=== PATIENT | male | born 1940 | race African-American/Black ===

== ENCOUNTER 2021-07-24 15:03 | Outpatient (CLI) | payer OTHER | END 2021-07-24 15:04 | disposition home or self-care (01) | LOC: BICULT 15:03 | PROVIDERS: ATTEND Family Medicine | DX: I65.23 Occlusion and stenosis of bilateral carotid arteries (principal) | CPT/HCPCS: 93880 ==

== ENCOUNTER 2023-02-17 22:57 | Emergency (ER) | payer OTHER ==
[2023-02-17 23:54] LABS: #Eosinphils 0.1 thou/uL (0.0-0.7); #Monocytes 0.9 thou/uL (0.11-0.59); #Neutrophils 4.6 thou/uL (1.40-6.50); %Basophils 0.6 % (0.0-1.0); %Eosinophils 1.9 % (0.0-10.0); %Lymphocytes 21.3 % (21.0-51.0); %Neutrophils 63.9 % (42.0-75.0); Hematocrit 35.9 % (42.0-52.0); Hemoglobin 11.7 g/dL (14.0-18.0); Mean Corpuscular HGB CONC 32.6 g/dL (32.0-36.0); Mean Corpuscular Hemoglobin 28.5 pg (27.0-31.0); Mean Corpuscular Volume 87.6 fl (78.0-98.0); Platelet Count 180 10x3/uL (130-400); RBC Distribution Width 16.6 % (11.5-14.5); White Blood Cell (WBC) Count 7.2 10x3/uL (4.8-10.8)
[2023-02-18 00:18] LABS: ALT (SGPT) 11 U/L (8-55); AST (SGOT) 21 U/L (5-34); Albumin 3.5 g/dL (3.4-4.8); Alkaline Phosphatase 59 U/L (40-110); Anion Gap 15 mmol/L (10-20); BUN (Urea Nitrogen) 14 mg/dL (8.4-25.7); Bilirubin, Total 0.4 mg/dL (0.2-1.2); Calc. Creatinine Clearance 0 mL/min (70-130); Calcium 8.6 mg/dL (7.8-10.44); Carbon Dioxide 23 mmol/L (23-31); Chloride 110 mmol/L (98-107); Estimated GFR 70; Globulin 2.9 g/dL (2.4-3.5); Glucose 141 mg/dL (83-110); Potassium 3.8 mmol/L (3.5-5.1); Protein, Total 6.4 g/dL (5.8-8.1); Sodium 144 mmol/L (136-145)
[2023-02-18 00:21] LABS: Troponin I Less than 0.010 ng/mL (< 0.028)
[2023-02-18 00:39] LABS: PTT 33.9 sec (22.9-36.1); Prothrombin Time 13.5 sec (12.0-14.7)
[2023-02-18] MEDS ORDERED: Ibuprofen 200 MG TAB ONE (00:51)
== END 2023-02-18 01:11 | disposition home or self-care (01) ==
LOC: ERS 22:57
DX: S00.83XA Contusion of other part of head, initial encounter (principal); F03.90 Unspecified dementia, unspecified severity, without behavioral disturbance, psychotic disturbance, mood disturbance, and anxiety; I10 Essential (primary) hypertension; W01.0XXA Fall on same level from slipping, tripping and stumbling without subsequent striking against object, initial encounter; Y92.009 Unspecified place in unspecified non-institutional (private) residence as the place of occurrence of the external cause; Z79.82 Long term (current) use of aspirin; Z79.899 Other long term (current) drug therapy; Z86.73 Personal history of transient ischemic attack (TIA), and cerebral infarction without residual deficits
CPT/HCPCS: 36415; 70450; 72125; 80053; 84484; 85025; 85610; 85730; 93005

== ENCOUNTER 2023-02-20 22:36 | Inpatient (IN) | payer OTHER ==
[2023-02-20 23:18] LABS: #Eosinphils 0.1 thou/uL (0.0-0.7); #Monocytes 0.9 thou/uL (0.11-0.59); #Neutrophils 4.6 thou/uL (1.40-6.50); %Basophils 0.6 % (0.0-1.0); %Eosinophils 1.3 % (0.0-10.0); %Lymphocytes 19.1 % (21.0-51.0); %Monocytes 12.5 % (0.0-10.0); %Neutrophils 66.2 % (42.0-75.0); Hematocrit 38.1 % (42.0-52.0); Hemoglobin 12.3 g/dL (14.0-18.0); Mean Corpuscular HGB CONC 32.3 g/dL (32.0-36.0); Mean Corpuscular Hemoglobin 28.9 pg (27.0-31.0); Mean Corpuscular Volume 89.4 fl (78.0-98.0); Mean Platelet Volume 12.1 fL (7.4-10.4); Platelet Count 195 10x3/uL (130-400); RBC Distribution Width 16.6 % (11.5-14.5); Red Blood Cell (RBC) Count 4.26 mill/uL (4.70-6.10)
[2023-02-20 23:43] LABS: Bacteria/HPF None Seen HPF (None Seen); Bilirubin Negative (Negative); Blood, Urine Negative (Negative); CAUTI Indications for Culture Alt mental st,lethar; Clarity Clear (Clear); Glucose, Urine (Dipstick) Normal (Negative); Ketone, Urine Negative (Negative); Leukocyte Negative Leu/uL (Negative); Nitrite Negative (Negative); Protein, Urine (Dipstick) 20 mg/dL (Neg-Trace); RBC/HPF 0-3 HPF (0-3); Specific Gravity, Urine 1.023 (1.002-1.036); Squamous Epithelial None Seen HPF (0-3); Urobilinogen 3 mg/dL (Less than 2); WBC/HPF 0-3 HPF (0-3); pH, Urine 6.5 (5.0-9.0)
[2023-02-20 23:44] LABS: ALT (SGPT) 14 U/L (8-55); AST (SGOT) 27 U/L (5-34); Albumin 3.7 g/dL (3.4-4.8); Alkaline Phosphatase 68 U/L (40-110); Anion Gap 16 mmol/L (10-20); BUN (Urea Nitrogen) 12 mg/dL (8.4-25.7); Bilirubin, Total 0.4 mg/dL (0.2-1.2); Calc. Creatinine Clearance 0 mL/min (70-130); Calcium 9.1 mg/dL (7.8-10.44); Carbon Dioxide 22 mmol/L (23-31); Chloride 107 mmol/L (98-107); Estimated GFR 68; Globulin 3.4 g/dL (2.4-3.5); Glucose 106 mg/dL (83-110); Potassium 3.9 mmol/L (3.5-5.1); Protein, Total 7.1 g/dL (5.8-8.1); Sodium 141 mmol/L (136-145)
[2023-02-20 23:45] LABS: Urine Culture Reflex No No
[2023-02-21] MEDS ORDERED: risperiDONE 1 MG TAB ONE (03:54)
[2023-02-21] MEDS ORDERED: Haloperidol Lactate 5 MG/ML VIAL ONE (04:20)
[2023-02-21] MEDS ORDERED: Ondansetron PF 4 MG/2 ML Vial IVP PRN (05:30)
[2023-02-21] MEDS ORDERED: Ondansetron ODT 4 MG TAB SL PRN (05:30)
[2023-02-21] MEDS ORDERED: Acetaminophen 325 MG TAB PO PRN (05:30)
[2023-02-21] MEDS: Nicotine 14 MG PATCH TD SCH (11:33)
[2023-02-21] MEDS ORDERED: FLU VACC QS2023(65UP)/MF59C/PF 60 MCG/0.5 ML SYRINGE IM ONE (14:00)
[2023-02-21] MEDS: Atorvastatin Calcium 40 MG TAB PO SCH (21:09)
[2023-02-21] MEDS: QUEtiapine 25 MG TAB PO SCH (21:09)
[2023-02-21] MEDS: traZODone HCl 50 MG TAB PO SCH (21:09)
[2023-02-21] MEDS: Losartan 25 MG TAB PO SCH (21:09)
[2023-02-22] MEDS ORDERED: Labetalol HCl 100 MG/20 ML VIAL SLOW IVP SCH (03:45)
[2023-02-22 07:10] LABS: #Monocytes 1.2 thou/uL (0.11-0.59); #Neutrophils 4.9 thou/uL (1.40-6.50); %Basophils 0.5 % (0.0-1.0); %Eosinophils 0.6 % (0.0-10.0); %Neutrophils 74.6 % (42.0-75.0); Hematocrit 39.6 % (42.0-52.0); Hemoglobin 13.1 g/dL (14.0-18.0); Mean Corpuscular HGB CONC 33.1 g/dL (32.0-36.0); Mean Corpuscular Hemoglobin 28.6 pg (27.0-31.0); Mean Corpuscular Volume 86.5 fl (78.0-98.0); Mean Platelet Volume 12.5 fL (7.4-10.4); Platelet Count 203 10x3/uL (130-400); RBC Distribution Width 16.3 % (11.5-14.5); Red Blood Cell (RBC) Count 4.58 mill/uL (4.70-6.10); White Blood Cell (WBC) Count 6.6 10x3/uL (4.8-10.8)
[2023-02-22 07:28] LABS: Anion Gap 14 mmol/L (10-20); BUN (Urea Nitrogen) 9 mg/dL (8.4-25.7); Calc. Creatinine Clearance 0 mL/min (70-130); Calcium 9.3 mg/dL (7.8-10.44); Carbon Dioxide 25 mmol/L (23-31); Chloride 104 mmol/L (98-107); Estimated GFR 80; Glucose 81 mg/dL (83-110); Potassium 3.5 mmol/L (3.5-5.1); Sodium 139 mmol/L (136-145)
[2023-02-22] MEDS: Tamsulosin HCl 0.4 MG CAP PO SCH (10:09)
[2023-02-22] MEDS: Losartan 25 MG TAB PO SCH ×2 (10:10→20:53)
[2023-02-22] MEDS: Aspirin 81 mg Enteric Coated Tablet PO SCH (10:10)
[2023-02-22] MEDS: Amlodipine 5 MG TAB PO SCH (10:10)
[2023-02-22] MEDS: Donepezil HCl 10 MG TAB PO SCH (10:10)
[2023-02-22] MEDS: Sertraline 25 MG TAB PO SCH (10:10)
[2023-02-22] MEDS: Finasteride 5 MG TAB PO SCH (10:10)
[2023-02-22] MEDS: Nicotine 14 MG PATCH TD SCH (10:13)
[2023-02-22] MEDS: traZODone HCl 50 MG TAB PO SCH (20:54)
[2023-02-22] MEDS: QUEtiapine 25 MG TAB PO SCH (20:54)
[2023-02-22] MEDS: Atorvastatin Calcium 40 MG TAB PO SCH (20:54)
[2023-02-23] MEDS: Donepezil HCl 10 MG TAB PO SCH (08:32)
[2023-02-23] MEDS: Losartan 25 MG TAB PO SCH ×2 (08:32→20:13)
[2023-02-23] MEDS: Finasteride 5 MG TAB PO SCH (08:32)
[2023-02-23] MEDS: Sertraline 25 MG TAB PO SCH (08:32)
[2023-02-23] MEDS: Amlodipine 5 MG TAB PO SCH (08:32)
[2023-02-23] MEDS: Aspirin 81 mg Enteric Coated Tablet PO SCH (08:32)
[2023-02-23] MEDS: Tamsulosin HCl 0.4 MG CAP PO SCH (08:32)
[2023-02-23] MEDS: Nicotine 14 MG PATCH TD SCH (10:25)
[2023-02-23] MEDS: Atorvastatin Calcium 40 MG TAB PO SCH (20:13)
[2023-02-23] MEDS: QUEtiapine 25 MG TAB PO SCH (20:13)
[2023-02-23] MEDS: traZODone HCl 50 MG TAB PO SCH (20:13)
[2023-02-24] MEDS: Sertraline 25 MG TAB PO SCH (07:59)
[2023-02-24] MEDS: Tamsulosin HCl 0.4 MG CAP PO SCH (07:59)
[2023-02-24] MEDS: Losartan 25 MG TAB PO SCH ×2 (07:59→21:06)
[2023-02-24] MEDS: Donepezil HCl 10 MG TAB PO SCH (07:59)
[2023-02-24] MEDS: Aspirin 81 mg Enteric Coated Tablet PO SCH (07:59)
[2023-02-24] MEDS: Finasteride 5 MG TAB PO SCH (07:59)
[2023-02-24] MEDS ORDERED: Amlodipine 5 MG TAB PO SCH ×2 (09:00)
[2023-02-24] MEDS: Nicotine 14 MG PATCH TD SCH (11:10)
[2023-02-24] MEDS: Atorvastatin Calcium 40 MG TAB PO SCH (21:06)
[2023-02-24] MEDS: QUEtiapine 25 MG TAB PO SCH (21:06)
[2023-02-24] MEDS: traZODone HCl 50 MG TAB PO SCH (21:07)
[2023-02-25] MEDS: Losartan 25 MG TAB PO SCH ×2 (08:58→22:08)
[2023-02-25] MEDS: Sertraline 25 MG TAB PO SCH (09:00)
[2023-02-25] MEDS: Donepezil HCl 10 MG TAB PO SCH (09:00)
[2023-02-25] MEDS: Amlodipine 5 MG TAB PO SCH (09:00)
[2023-02-25] MEDS: Finasteride 5 MG TAB PO SCH (09:00)
[2023-02-25] MEDS: Aspirin 81 mg Enteric Coated Tablet PO SCH (09:00)
[2023-02-25] MEDS: Tamsulosin HCl 0.4 MG CAP PO SCH (09:00)
[2023-02-25] MEDS: Nicotine 14 MG PATCH TD SCH (10:57)
[2023-02-25] MEDS: Atorvastatin Calcium 40 MG TAB PO SCH (22:08)
[2023-02-25] MEDS: QUEtiapine 25 MG TAB PO SCH (22:08)
[2023-02-25] MEDS: traZODone HCl 50 MG TAB PO SCH (22:09)
[2023-02-26] MEDS: Losartan 25 MG TAB PO SCH ×2 (08:18→20:35)
[2023-02-26] MEDS: Aspirin 81 mg Enteric Coated Tablet PO SCH (08:18)
[2023-02-26] MEDS: Tamsulosin HCl 0.4 MG CAP PO SCH (08:18)
[2023-02-26] MEDS: Finasteride 5 MG TAB PO SCH (08:18)
[2023-02-26] MEDS: Donepezil HCl 10 MG TAB PO SCH (08:18)
[2023-02-26] MEDS: Sertraline 25 MG TAB PO SCH (08:18)
[2023-02-26] MEDS: Amlodipine 5 MG TAB PO SCH (08:18)
[2023-02-26] MEDS: Nicotine 14 MG PATCH TD SCH (10:36)
[2023-02-26] MEDS: QUEtiapine 25 MG TAB PO SCH ×2 (20:30→20:31)
[2023-02-26] MEDS: Atorvastatin Calcium 40 MG TAB PO SCH (20:35)
[2023-02-26] MEDS: traZODone HCl 50 MG TAB PO SCH (20:36)
[2023-02-27 05:57] LABS: Hematocrit 43.4 % (42.0-52.0); Hemoglobin 14.3 g/dL (14.0-18.0); Mean Corpuscular HGB CONC 32.9 g/dL (32.0-36.0); Mean Corpuscular Hemoglobin 28.1 pg (27.0-31.0); Mean Corpuscular Volume 85.3 fl (78.0-98.0); Mean Platelet Volume 12.5 fL (7.4-10.4); Platelet Count 234 10x3/uL (130-400); RBC Distribution Width 15.7 % (11.5-14.5); Red Blood Cell (RBC) Count 5.09 mill/uL (4.70-6.10); White Blood Cell (WBC) Count 9.5 10x3/uL (4.8-10.8)
[2023-02-27 06:20] LABS: Anion Gap 21 mmol/L (10-20); BUN (Urea Nitrogen) 110 mg/dL (8.4-25.7); Calc. Creatinine Clearance 19 mL/min (70-130); Calcium 9.2 mg/dL (7.8-10.44); Carbon Dioxide 20 mmol/L (23-31); Chloride 106 mmol/L (98-107); Estimated GFR 24; Glucose 115 mg/dL (83-110); Potassium 4.1 mmol/L (3.5-5.1); Sodium 143 mmol/L (136-145)
[2023-02-27] MEDS ORDERED: Sodium Chloride 0.9% 1,000 ML IV SCH (07:45)
[2023-02-27] MEDS: Amlodipine 5 MG TAB PO SCH (09:38)
[2023-02-27] MEDS: Tamsulosin HCl 0.4 MG CAP PO SCH ×2 (09:53→09:56)
[2023-02-27] MEDS: Aspirin 81 mg Enteric Coated Tablet PO SCH ×2 (09:53→09:56)
[2023-02-27] MEDS: Finasteride 5 MG TAB PO SCH ×2 (09:53→09:56)
[2023-02-27] MEDS: Donepezil HCl 10 MG TAB PO SCH (09:57)
[2023-02-27] MEDS: Sertraline 25 MG TAB PO SCH (09:57)
[2023-02-27 10:16] LABS: Actual Bicarbonate (HCO3a) 21.1 mEq/L (22-28); Base Excess (BEa) -2.1 mEq/L (-2.0 to +3.0); CO2 Tension 31.9 mmHg (35.0-45.0); Calcium, Ionized (arterial) 1.16 mmol/L (1.12-1.30); Carboxyhemoglobin (COHb) 0.4 gm% (0.0-3.0); Hematocrit-ABG 44 % (42.0-52.0); Hemoglobin (Hb) 14.8 g/dL (14.0-18.0); O2 Tension (PaO2), arterial 47.6 mmHg (> 60.0); Potassium - ABG Lab 3.99 mmol/L (3.70-5.30); Puncture Site RRA; pH, Arterial 7.438 (7.35-7.45)
[2023-02-27] MEDS: Sodium Chloride 0.9% 1,000 ML IV SCH ×2 (10:16→18:14)
[2023-02-27] MEDS: Nicotine 14 MG PATCH TD SCH (10:22)
[2023-02-27] MEDS: Atorvastatin Calcium 40 MG TAB PO SCH (20:30)
[2023-02-28] MEDS: Sodium Chloride 0.9% 1,000 ML IV SCH (04:43)
[2023-02-28 07:11] LABS: Anion Gap 19 mmol/L (10-20); Calc. Creatinine Clearance 13 mL/min (70-130); Calcium 8.7 mg/dL (7.8-10.44); Carbon Dioxide 21 mmol/L (23-31); Chloride 111 mmol/L (98-107); Estimated GFR 15; Glucose 119 mg/dL (83-110); Magnesium 3.1 mg/dL (1.6-2.6); Potassium 3.9 mmol/L (3.5-5.1); Sodium 147 mmol/L (136-145)
[2023-02-28 07:23] LABS: BUN (Urea Nitrogen) 126 mg/dL (8.4-25.7)
[2023-02-28] MEDS ORDERED: Dextrose 5 %-0.45 % NaCl 1,000 ML IV SCH (07:30)
[2023-02-28] MEDS: Albumin 25% 25 GM (100 mL) BOT IVPB SCH ×3 (08:22→20:24)
[2023-02-28] MEDS: Amlodipine 5 MG TAB PO SCH (08:30)
[2023-02-28] MEDS: Finasteride 5 MG TAB PO SCH (08:31)
[2023-02-28] MEDS: Tamsulosin HCl 0.4 MG CAP PO SCH (08:31)
[2023-02-28] MEDS: Aspirin 81 mg Enteric Coated Tablet PO SCH (08:31)
[2023-02-28] MEDS: Nicotine 14 MG PATCH TD SCH (10:26)
[2023-02-28] MEDS: Dextrose 5 %-0.45 % NaCl 1,000 ML IV SCH ×3 (11:56→20:25)
[2023-02-28 15:10] LABS: Bilirubin Negative (Negative); Blood, Urine 3+ (Negative); Clarity Turbid (Clear); Glucose, Urine (Dipstick) Normal (Negative); Ketone, Urine Negative (Negative); Leukocyte Negative Leu/uL (Negative); Nitrite Negative (Negative); Protein, Urine (Dipstick) 50 mg/dL (Neg-Trace); RBC/HPF 0-3 HPF (0-3); Specific Gravity, Urine 1.016 (1.002-1.036); Squamous Epithelial 0-3 HPF (0-3); Urobilinogen Normal mg/dL (Less than 2); WBC/HPF 0-3 HPF (0-3)
[2023-02-28 15:17] LABS: Bacteria/HPF 1+ HPF (None Seen)
[2023-02-28] MEDS: Atorvastatin Calcium 40 MG TAB PO SCH (20:24)
[2023-03-01] MEDS: Albumin 25% 25 GM (100 mL) BOT IVPB SCH ×3 (01:25→17:01)
[2023-03-01] MEDS: Dextrose 5 %-0.45 % NaCl 1,000 ML IV SCH (05:40)
[2023-03-01 07:24] LABS: Hematocrit 37.1 % (42.0-52.0); Hemoglobin 12.2 g/dL (14.0-18.0); Manual Diff?? YES; Mean Corpuscular HGB CONC 32.9 g/dL (32.0-36.0); Mean Corpuscular Hemoglobin 28.2 pg (27.0-31.0); Mean Corpuscular Volume 85.7 fl (78.0-98.0); Mean Platelet Volume 12.4 fL (7.4-10.4); Platelet Count 218 10x3/uL (130-400); RBC Distribution Width 15.8 % (11.5-14.5); Red Blood Cell (RBC) Count 4.33 mill/uL (4.70-6.10); White Blood Cell (WBC) Count 8.8 10x3/uL (4.8-10.8)
[2023-03-01 07:29] LABS: Delete Auto Diff?? YES
[2023-03-01 07:47] LABS: Anion Gap 18 mmol/L (10-20); Calc. Creatinine Clearance 14 mL/min (70-130); Calcium 8.9 mg/dL (7.8-10.44); Carbon Dioxide 19 mmol/L (23-31); Chloride 114 mmol/L (98-107); Estimated GFR 16; Glucose 243 mg/dL (83-110); Potassium 3.4 mmol/L (3.5-5.1); Sodium 148 mmol/L (136-145)
[2023-03-01 07:57] LABS: Anisocytosis SLIGHT = 6-15 cells HPF (0-5); Band 35 % (5-11); Burr Cells SLIGHT = 2-5 cells HPF (0-1); CellaVision Operator ID lab.dlt; Large Platelets 7.6 % (0-5); Lymphocytes 5 % (21-51); Monocytes 19 % (0-10); Neutrophil 42 % (42-75); Ovalocytes MODERATE= 6-15 cells HPF (0-1); Platelet Adequacy Comment Platelets Normal; Poikilocytosis MODERATE=16-30 cells HPF (0-5); Schistocytes SLIGHT = 2-5 cells HPF (0-1); Smudge Cells 7.6 %; Total Cell Count 118
[2023-03-01 07:58] LABS: BUN (Urea Nitrogen) 122 mg/dL (8.4-25.7)
[2023-03-01] MEDS ORDERED: Dextrose 5 %-0.45 % NaCl 1,000 ML IV SCH (08:59)
[2023-03-01] MEDS ORDERED: Potassium Chloride 20 MEQ in Premix 1 BAG IVPB SCH (09:00)
[2023-03-01] MEDS: Aspirin 81 mg Enteric Coated Tablet PO SCH (09:39)
[2023-03-01] MEDS: Amlodipine 5 MG TAB PO SCH (09:39)
[2023-03-01] MEDS: Tamsulosin HCl 0.4 MG CAP PO SCH (09:40)
[2023-03-01] MEDS: Finasteride 5 MG TAB PO SCH (09:40)
[2023-03-01] MEDS ORDERED: Furosemide 40 MG (4 mL) VIAL SLOW IVP SCH (10:30)
[2023-03-01] MEDS ORDERED: Piperacillin/Tazobactam 3.375 GM in Sodium Chloride 0.9% 100 ML IVPB SCH ×2 (10:30→12:00)
[2023-03-01] MEDS ORDERED: Vancomycin Dose by Levels Sliding Scale (Wt <71) FS SCH (10:45)
[2023-03-01 10:53] LABS: Hematocrit 41.4 % (42.0-52.0); Hemoglobin 13.4 g/dL (14.0-18.0); Manual Diff?? YES; Mean Corpuscular HGB CONC 32.4 g/dL (32.0-36.0); Mean Corpuscular Hemoglobin 28.2 pg (27.0-31.0); Mean Corpuscular Volume 87.2 fl (78.0-98.0); Mean Platelet Volume 12.3 fL (7.4-10.4); Platelet Count 250 10x3/uL (130-400); RBC Distribution Width 15.9 % (11.5-14.5); Red Blood Cell (RBC) Count 4.75 mill/uL (4.70-6.10); White Blood Cell (WBC) Count 8.8 10x3/uL (4.8-10.8)
[2023-03-01] MEDS ORDERED: Ventilator Sedation Protocol 1 EACH FS ONE (10:56)
[2023-03-01] MEDS ORDERED: Lorazepam 2 MG/ML VIAL ONE (10:57)
[2023-03-01] MEDS ORDERED: Fentanyl CADD 100 ML ONE (10:59)
[2023-03-01] MEDS: Ipratropium/Albuterol 3 ML NEB NEB SCH ×4 (11:03→22:06)
[2023-03-01 11:05] LABS: Delete Auto Diff?? YES
[2023-03-01] MEDS ORDERED: Fentanyl BOLUS 250 ML IVPB PRN (11:15)
[2023-03-01] MEDS ORDERED: Propofol 1,000 MG/100 ML VIAL IV PRN (11:15)
[2023-03-01] MEDS ORDERED: Propofol BOLUS 1,000 MG/100 ML VIAL IV PRN (11:15)
[2023-03-01 11:20] LABS: ALT (SGPT) 24 U/L (8-55); AST (SGOT) 61 U/L (5-34); Albumin 3.8 g/dL (3.4-4.8); Alkaline Phosphatase 44 U/L (40-110); Anion Gap 22 mmol/L (10-20); Bilirubin, Total 2.3 mg/dL (0.2-1.2); Calc. Creatinine Clearance 13 mL/min (70-130); Calcium 9.4 mg/dL (7.8-10.44); Carbon Dioxide 18 mmol/L (23-31); Chloride 114 mmol/L (98-107); Estimated GFR 16; Globulin 3.3 g/dL (2.4-3.5); Glucose 217 mg/dL (83-110); Potassium 3.6 mmol/L (3.5-5.1); Protein, Total 7.1 g/dL (5.8-8.1); Sodium 150 mmol/L (136-145)
[2023-03-01 11:21] LABS: Critical Call Chem-Lactate NUR.TH3 @1121
[2023-03-01 11:24] LABS: Troponin I 0.114 ng/mL (< 0.028)
[2023-03-01 11:26] LABS: Actual Bicarbonate (HCO3a) 16.7 mEq/L (22-28); Base Excess (BEa) -8.9 mEq/L (-2.0 to +3.0); CO2 Tension 34.9 mmHg (35.0-45.0); Calcium, Ionized (arterial) 1.15 mmol/L (1.12-1.30); Carboxyhemoglobin (COHb) 0.3 gm% (0.0-3.0); Hematocrit-ABG 36 % (42.0-52.0); Hemoglobin (Hb) 12.1 g/dL (14.0-18.0); pH, Arterial 7.297 (7.35-7.45)
[2023-03-01 11:33] LABS: BUN (Urea Nitrogen) 125 mg/dL (8.4-25.7)
[2023-03-01 11:37] LABS: Anisocytosis SLIGHT = 6-15 cells HPF (0-5); Band 21 % (5-11); Burr Cells SLIGHT = 2-5 cells HPF (0-1); CellaVision Operator ID lab.dlt; Large Platelets 15.4 % (0-5); Lymphocytes 9 % (21-51); Monocytes 10 % (0-10); Neutrophil 59 % (42-75); Nucleated RBC (Manual Ct) 1 % (0); Platelet Adequacy Comment Platelets Normal; Poikilocytosis SLIGHT = 6-15 cells HPF (0-5); Schistocytes SLIGHT = 2-5 cells HPF (0-1); Smudge Cells 10.3 %; Total Cell Count 117
[2023-03-01] MEDS: Lorazepam 2 MG/ML VIAL SLOW IVP PRN (11:50)
[2023-03-01] MEDS: Fentanyl CADD 100 ML IV SCH (11:52)
[2023-03-01] MEDS: methylPREDNISolone Sod Succ 40 MG VIAL IVP SCH ×2 (12:17→17:01)
[2023-03-01] MEDS: Nicotine 14 MG PATCH TD SCH (12:18)
[2023-03-01 12:56] LABS: O2 Tension (PaO2), arterial 54.6 mmHg (> 60.0)
[2023-03-01 12:57] LABS: ALV-art Gradient 614.775 mmHg (0-20); Puncture Site RBA
[2023-03-01] MEDS ORDERED: Vancomycin (BATCH) 1.5 GM in Premix 1 BAG IVPB SCH (14:00)
[2023-03-01] MEDS: Piperacillin/Tazobactam 3.375 GM in Sodium Chloride 0.9% 100 ML IVPB SCH (16:11)
[2023-03-01] MEDS ORDERED: Sodium Chloride 0.9% 1,000 ML IV SCH (16:15)
[2023-03-01] MEDS: Acetaminophen 325 MG TAB PO PRN (16:28)
[2023-03-01] MEDS: NOREPINEPHRINE 8 MG/250 ML-D5W 250 ML ONE ×2 (17:28)
[2023-03-01] MEDS ORDERED: NOREPINEPHRINE 8 MG/250 ML-D5W 250 ML IVPB SCH (17:30)
[2023-03-01] MEDS: Sodium Chloride 0.9% 1,000 ML IV SCH (19:37)
[2023-03-01] MEDS: Atorvastatin Calcium 40 MG TAB PO SCH (20:17)
[2023-03-01] MEDS ORDERED: Vancomycin 1 GM in Premix 1 BAG IVPB SCH (21:00)
[2023-03-02] MEDS: Albumin 25% 25 GM (100 mL) BOT IVPB SCH ×2 (00:12→06:01)
[2023-03-02] MEDS: methylPREDNISolone Sod Succ 40 MG VIAL IVP SCH ×4 (00:13→17:34)
[2023-03-02] MEDS: Sodium Chloride 0.9% 1,000 ML IV SCH ×2 (01:48→08:37)
[2023-03-02] MEDS: Ipratropium/Albuterol 3 ML NEB NEB SCH ×6 (02:25→22:00)
[2023-03-02] MEDS: Piperacillin/Tazobactam 3.375 GM in Sodium Chloride 0.9% 100 ML IVPB SCH ×2 (04:32→15:34)
[2023-03-02 05:05] LABS: Manual Diff?? YES; Mean Corpuscular HGB CONC 32.7 g/dL (32.0-36.0); Mean Corpuscular Hemoglobin 28.8 pg (27.0-31.0); Mean Corpuscular Volume 88.1 fl (78.0-98.0); Mean Platelet Volume 12.5 fL (7.4-10.4); Platelet Count 172 10x3/uL (130-400); RBC Distribution Width 16.5 % (11.5-14.5); Red Blood Cell (RBC) Count 3.02 mill/uL (4.70-6.10); White Blood Cell (WBC) Count 8.9 10x3/uL (4.8-10.8)
[2023-03-02 05:24] LABS: Hematocrit 26.6 % (42.0-52.0); Hemoglobin 8.7 g/dL (14.0-18.0)
[2023-03-02 05:25] LABS: Delete Auto Diff?? YES
[2023-03-02 05:35] LABS: BUN (Urea Nitrogen) 115 mg/dL (8.4-25.7)
[2023-03-02 05:56] LABS: Anisocytosis SLIGHT = 6-15 cells HPF (0-5); Band 36 % (5-11); Burr Cells MODERATE= 6-15 cells HPF (0-1); CellaVision Operator ID lab.abc; Large Platelets 5.6 % (0-5); Lymphocytes 1 % (21-51); Monocytes 11 % (0-10); Neutrophil 52 % (42-75); Nucleated RBC (Manual Ct) 2 % (0); Platelet Adequacy Comment Platelets Normal; Poikilocytosis MODERATE=16-30 cells HPF (0-5); Schistocytes SLIGHT = 2-5 cells HPF (0-1); Smudge Cells 1.9 %; Total Cell Count 108; Toxic Granulation SLIGHT
[2023-03-02 07:08] LABS: Anion Gap 18 mmol/L (10-20); Calc. Creatinine Clearance 15 mL/min (70-130); Calcium 7.6 mg/dL (7.8-10.44); Carbon Dioxide 14 mmol/L (23-31); Chloride 122 mmol/L (98-107); Estimated GFR 16; Glucose 208 mg/dL (83-110); Magnesium 2.6 mg/dL (1.6-2.6); Potassium 3.9 mmol/L (3.5-5.1); Sodium 150 mmol/L (136-145)
[2023-03-02 07:13] LABS: Hematocrit 26.4 % (42.0-52.0); Hemoglobin 8.7 g/dL (14.0-18.0); Mean Corpuscular Hemoglobin 28.5 pg (27.0-31.0); Mean Corpuscular Volume 86.6 fl (78.0-98.0); Mean Platelet Volume 12.6 fL (7.4-10.4); Platelet Count 169 10x3/uL (130-400); RBC Distribution Width 16.5 % (11.5-14.5); Red Blood Cell (RBC) Count 3.05 mill/uL (4.70-6.10); White Blood Cell (WBC) Count 8.8 10x3/uL (4.8-10.8)
[2023-03-02 07:37] LABS: Base Excess (BEa) -11.4 mEq/L (-2.0 to +3.0); CO2 Tension 30.2 mmHg (35.0-45.0); Calcium, Ionized (arterial) 1.12 mmol/L (1.12-1.30); Carboxyhemoglobin (COHb) 0.3 gm% (0.0-3.0); Hematocrit-ABG 29 % (42.0-52.0); Hemoglobin (Hb) 9.7 g/dL (14.0-18.0); O2 Tension (PaO2), arterial 82.4 mmHg (> 60.0); Potassium - ABG Lab 3.85 mmol/L (3.70-5.30); pH, Arterial 7.286 (7.35-7.45)
[2023-03-02 07:44] LABS: Actual Bicarbonate (HCO3a) 14.1 mEq/L (22-28); Puncture Site RRA
[2023-03-02] MEDS ORDERED: Pantoprazole 40 MG VIAL IVP SCH (09:00)
[2023-03-02] MEDS: Lactated Ringer's 1,000 ML IV SCH ×3 (09:20→23:41)
[2023-03-02] MEDS: Aspirin Chewable 81 MG TAB PO SCH (09:29)
[2023-03-02] MEDS: Pantoprazole 40 MG VIAL IVP SCH (09:29)
[2023-03-02] MEDS: Heparin 5,000 UNITS/ML VIAL SC SCH ×2 (09:30→21:22)
[2023-03-02 15:57] LABS: Vancomycin, Random 11.3 ug/mL (See Comment)
[2023-03-02] MEDS ORDERED: Vancomycin HCl 750 MG in Sodium Chloride 0.9% 250 ML 250 ML IVPB SCH (16:30)
[2023-03-02] MEDS: Atorvastatin Calcium 40 MG TAB PO SCH (21:22)
[2023-03-03] MEDS: methylPREDNISolone Sod Succ 40 MG VIAL IVP SCH ×5 (00:44→23:23)
[2023-03-03] MEDS: Ipratropium/Albuterol 3 ML NEB NEB SCH ×6 (02:20→21:40)
[2023-03-03] MEDS: Piperacillin/Tazobactam 3.375 GM in Sodium Chloride 0.9% 100 ML IVPB SCH ×2 (04:58→17:28)
[2023-03-03] MEDS: Lactated Ringer's 1,000 ML IV SCH ×2 (06:51→12:33)
[2023-03-03 08:29] LABS: Hemoglobin 9.1 g/dL (14.0-18.0); Manual Diff?? YES; Mean Corpuscular HGB CONC 32.5 g/dL (32.0-36.0); Mean Corpuscular Hemoglobin 28.2 pg (27.0-31.0); Mean Corpuscular Volume 86.7 fl (78.0-98.0); Platelet Count 161 10x3/uL (130-400); RBC Distribution Width 16.9 % (11.5-14.5); Red Blood Cell (RBC) Count 3.23 mill/uL (4.70-6.10); White Blood Cell (WBC) Count 9.1 10x3/uL (4.8-10.8)
[2023-03-03 08:40] LABS: Delete Auto Diff?? YES
[2023-03-03 08:54] LABS: Anion Gap 18 mmol/L (10-20); Calc. Creatinine Clearance 14 mL/min (70-130); Calcium 7.8 mg/dL (7.8-10.44); Carbon Dioxide 14 mmol/L (23-31); Chloride 118 mmol/L (98-107); Estimated GFR 14; Glucose 278 mg/dL (83-110); Potassium 3.8 mmol/L (3.5-5.1); Sodium 146 mmol/L (136-145)
[2023-03-03 09:05] LABS: BUN (Urea Nitrogen) 145 mg/dL (8.4-25.7)
[2023-03-03 09:28] LABS: Actual Bicarbonate (HCO3a) 15.2 mEq/L (22-28); Base Excess (BEa) -9.9 mEq/L (-2.0 to +3.0); CO2 Tension 30.5 mmHg (35.0-45.0); Calcium, Ionized (arterial) 1.14 mmol/L (1.12-1.30); Carboxyhemoglobin (COHb) 0.5 gm% (0.0-3.0); Hematocrit-ABG 27 % (42.0-52.0); Hemoglobin (Hb) 9.2 g/dL (14.0-18.0); O2 Tension (PaO2), arterial 52.1 mmHg (> 60.0); Potassium - ABG Lab 3.81 mmol/L (3.70-5.30); pH, Arterial 7.315 (7.35-7.45)
[2023-03-03 09:29] LABS: ALV-art Gradient 194.975 mmHg (0-20); Puncture Site RBA
[2023-03-03 09:38] LABS: Band 6 % (5-11); Burr Cells MARKED = >16 cells HPF (0-1); CellaVision Operator ID LAB.GE; Giant Platelets 1.9 % (0-5); Large Platelets 9.6 % (0-5); Lymphocytes 1 % (21-51); Monocytes 1 % (0-10); Neutrophil 90 % (42-75); Nucleated RBC (Manual Ct) 1 % (0); Platelet Adequacy Comment Platelets Normal; Polychromasia SLIGHT = 2-3 cells HPF (0-2); Schistocytes SLIGHT = 2-5 cells HPF (0-1); Total Cell Count 104
[2023-03-03] MEDS: Pantoprazole 40 MG VIAL IVP SCH (10:14)
[2023-03-03] MEDS: Aspirin Chewable 81 MG TAB PO SCH (10:14)
[2023-03-03] MEDS: Heparin 5,000 UNITS/ML VIAL SC SCH ×2 (10:14→20:35)
[2023-03-03] MEDS: Fentanyl CADD 100 ML IV SCH (14:17)
[2023-03-03] MEDS ORDERED: Furosemide 40 MG (4 mL) VIAL SLOW IVP SCH (17:45)
[2023-03-03] MEDS: Atorvastatin Calcium 40 MG TAB PO SCH (20:35)
[2023-03-04] MEDS: Ipratropium/Albuterol 3 ML NEB NEB SCH ×6 (02:12→21:46)
[2023-03-04] MEDS: Piperacillin/Tazobactam 3.375 GM in Sodium Chloride 0.9% 100 ML IVPB SCH ×3 (05:00→20:19)
[2023-03-04] MEDS: methylPREDNISolone Sod Succ 40 MG VIAL IVP SCH ×3 (05:00→20:19)
[2023-03-04 05:32] LABS: Hematocrit 28.8 % (42.0-52.0); Hemoglobin 9.9 g/dL (14.0-18.0); Manual Diff?? YES; Mean Corpuscular HGB CONC 34.4 g/dL (32.0-36.0); Mean Corpuscular Hemoglobin 28.2 pg (27.0-31.0); Mean Platelet Volume 13.7 fL (7.4-10.4); Platelet Count 174 10x3/uL (130-400); RBC Distribution Width 16.6 % (11.5-14.5); Red Blood Cell (RBC) Count 3.51 mill/uL (4.70-6.10); White Blood Cell (WBC) Count 11.3 10x3/uL (4.8-10.8)
[2023-03-04 05:51] LABS: Anion Gap 18 mmol/L (10-20); Calc. Creatinine Clearance 12 mL/min (70-130); Calcium 8.1 mg/dL (7.8-10.44); Carbon Dioxide 15 mmol/L (23-31); Chloride 118 mmol/L (98-107); Estimated GFR 13; Glucose 376 mg/dL (83-110); Potassium 4.2 mmol/L (3.5-5.1); Sodium 147 mmol/L (136-145)
[2023-03-04 06:31] LABS: Delete Auto Diff?? YES; Mean Corpuscular Volume 82.1 fl (78.0-98.0)
[2023-03-04 06:56] LABS: BUN (Urea Nitrogen) 161 mg/dL (8.4-25.7); Band 1 % (5-11); Burr Cells MARKED = >16 cells HPF (0-1); CellaVision Operator ID lab.abc; Large Platelets 10.1 % (0-5); Lymphocytes 1 % (21-51); Myelocyte 1 % (0-0); Neutrophil 97 % (42-75); Nucleated RBC (Manual Ct) 1 % (0); Platelet Adequacy Comment Platelets Normal; Poikilocytosis MODERATE=16-30 cells HPF (0-5); Polychromasia SLIGHT = 2-3 cells HPF (0-2); Smudge Cells 14.1 %; Total Cell Count 99
[2023-03-04] MEDS: Heparin 5,000 UNITS/ML VIAL SC SCH ×2 (08:51→20:31)
[2023-03-04] MEDS: Aspirin Chewable 81 MG TAB PO SCH (08:51)
[2023-03-04] MEDS: Pantoprazole 40 MG VIAL IVP SCH (08:51)
[2023-03-04] MEDS ORDERED: SODIUM CHLORIDE IVPB SCH (09:15)
[2023-03-04] MEDS ORDERED: FUROSEMIDE IVPB SCH (09:15)
[2023-03-04] MEDS ORDERED: ADMIXTURE FEE IVPB SCH (09:15)
[2023-03-04] MEDS: Senokot S 8.6-50 MG TAB PO SCH ×2 (09:42→20:19)
[2023-03-04] MEDS: Polyethylene Glycol 3350 17 GM Packet PO SCH (09:42)
[2023-03-04 13:07] LABS: Base Excess (BEa) -10.6 mEq/L (-2.0 to +3.0); CO2 Tension 26.8 mmHg (35.0-45.0); Calcium, Ionized (arterial) 1.18 mmol/L (1.12-1.30); Carboxyhemoglobin (COHb) 0.3 gm% (0.0-3.0); Hematocrit-ABG 31 % (42.0-52.0); Hemoglobin (Hb) 10.4 g/dL (14.0-18.0); O2 Tension (PaO2), arterial 66.7 mmHg (> 60.0); Potassium - ABG Lab 4.13 mmol/L (3.70-5.30); pH, Arterial 7.334 (7.35-7.45)
[2023-03-04 13:08] LABS: Actual Bicarbonate (HCO3a) 13.9 mEq/L (22-28)
[2023-03-04 13:09] LABS: Puncture Site Right Brachial
[2023-03-04 20:00] LABS: Hep B Core Total Ab Non-Reactive (NonReactive)
[2023-03-04 20:01] LABS: Hep B Core Total Index 0.07 S/CO (0-0.79); Hep B Surf Ag Non-Reactive S/CO (NonReactive)
[2023-03-04 20:02] LABS: HBSAB Concentration Less than 8.00 mIU/mL; Hep B Surf AB Non-Reactive (NonReactive)
[2023-03-04 20:03] LABS: Hep C IgG Ab Non-Reactive S/CO (NonReactive); Hep C Index 0.14 S/CO (0-0.79)
[2023-03-04] MEDS: Atorvastatin Calcium 40 MG TAB PO SCH (20:19)
[2023-03-05] MEDS: methylPREDNISolone Sod Succ 40 MG VIAL IVP SCH ×4 (01:35→18:11)
[2023-03-05] MEDS: Ipratropium/Albuterol 3 ML NEB NEB SCH ×6 (02:09→22:18)
[2023-03-05 05:22] LABS: Hematocrit 28.6 % (42.0-52.0); Hemoglobin 10.2 g/dL (14.0-18.0); Manual Diff?? YES; Mean Corpuscular HGB CONC 35.7 g/dL (32.0-36.0); Mean Corpuscular Hemoglobin 28.2 pg (27.0-31.0); Platelet Count 147 10x3/uL (130-400); RBC Distribution Width 15.9 % (11.5-14.5); Red Blood Cell (RBC) Count 3.62 mill/uL (4.70-6.10); White Blood Cell (WBC) Count 15.2 10x3/uL (4.8-10.8)
[2023-03-05 05:27] LABS: Delete Auto Diff?? YES
[2023-03-05 05:48] LABS: Anion Gap 19 mmol/L (10-20); Calc. Creatinine Clearance 16 mL/min (70-130); Calcium 8.2 mg/dL (7.8-10.44); Carbon Dioxide 19 mmol/L (23-31); Chloride 109 mmol/L (98-107); Estimated GFR 17; Glucose 305 mg/dL (83-110); Potassium 4.1 mmol/L (3.5-5.1); Sodium 143 mmol/L (136-145)
[2023-03-05 05:57] LABS: Anisocytosis MARKED = >30 cells HPF (0-5); Band 3 % (5-11); CellaVision Operator ID LAB.CLH1; Hypochromia SLIGHT = 6-15 cells HPF (0-5); Monocytes 1 % (0-10); Neutrophil 96 % (42-75); Nucleated RBC (Manual Ct) 2 % (0); Ovalocytes SLIGHT = 2-5 cells HPF (0-1); Platelet Adequacy Comment Platelets Normal; Poikilocytosis SLIGHT = 6-15 cells HPF (0-5); Polychromasia SLIGHT = 2-3 cells HPF (0-2); Schistocytes SLIGHT = 2-5 cells HPF (0-1); Target Cells MODERATE= 6-15 cells HPF (0-1); Total Cell Count 100
[2023-03-05 06:04] LABS: BUN (Urea Nitrogen) 111 mg/dL (8.4-25.7)
[2023-03-05] MEDS ORDERED: Albumin 25% 25 GM (100 mL) BOT IVPB SCH (11:00)
[2023-03-05] MEDS: Piperacillin/Tazobactam 3.375 GM in Sodium Chloride 0.9% 100 ML IVPB SCH ×2 (11:13→20:01)
[2023-03-05] MEDS: Senokot S 8.6-50 MG TAB PO SCH ×2 (11:21→20:03)
[2023-03-05] MEDS: Polyethylene Glycol 3350 17 GM Packet PO SCH (11:22)
[2023-03-05] MEDS: Pantoprazole 40 MG VIAL IVP SCH (11:22)
[2023-03-05] MEDS: Aspirin Chewable 81 MG TAB PO SCH (11:22)
[2023-03-05] MEDS ORDERED: Dextrose 5% in Water 1,000 ML IV PRN (11:39)
[2023-03-05] MEDS ORDERED: HumaLOG 300 UNITS/3 ML VIAL SC PRN (11:39)
[2023-03-05] MEDS ORDERED: Glucagon 1 MG/ML KIT IM PRN (11:39)
[2023-03-05] MEDS ORDERED: Insulin Glargine 30 UNITS/0.3 ML VIAL SC ONE (11:40)
[2023-03-05] MEDS ORDERED: NOREPINEPHRINE 8 MG/250 ML-D5W 250 ML ONE (12:39)
[2023-03-05 13:09] LABS: Actual Bicarbonate (HCO3a) 24.3 mEq/L (22-28); Base Excess (BEa) 0.7 mEq/L (-2.0 to +3.0); CO2 Tension 34.9 mmHg (35.0-45.0); Carboxyhemoglobin (COHb) 0.3 gm% (0.0-3.0); Hematocrit-ABG 32 % (42.0-52.0); Hemoglobin (Hb) 10.9 g/dL (14.0-18.0); O2 Tension (PaO2), arterial 60.7 mmHg (> 60.0); Potassium - ABG Lab 3.36 mmol/L (3.70-5.30)
[2023-03-05 13:11] LABS: ALV-art Gradient 466.075 mmHg (0-20); Puncture Site Right Radial
[2023-03-05] MEDS: Heparin 5,000 UNITS/ML VIAL SC SCH ×2 (13:11→21:15)
[2023-03-05] MEDS ORDERED: NOREPINEPHRINE 8 MG/250 ML-D5W 250 ML IVPB SCH (13:15)
[2023-03-05] MEDS: HumaLOG 300 UNITS/3 ML VIAL SC PRN (18:19)
[2023-03-05] MEDS ORDERED: Piperacillin/Tazobactam 3.375 GM in Sodium Chloride 0.9% 100 ML IVPB SCH (20:00)
[2023-03-05] MEDS: Atorvastatin Calcium 40 MG TAB PO SCH (20:03)
[2023-03-06] MEDS: HumaLOG 300 UNITS/3 ML VIAL SC PRN ×3 (00:22→18:53)
[2023-03-06] MEDS: methylPREDNISolone Sod Succ 40 MG VIAL IVP SCH ×3 (00:23→20:06)
[2023-03-06] MEDS: Ipratropium/Albuterol 3 ML NEB NEB SCH ×6 (02:49→22:43)
[2023-03-06 04:49] LABS: Hemoglobin 9.5 g/dL (14.0-18.0); Manual Diff?? YES; Mean Corpuscular HGB CONC 35.2 g/dL (32.0-36.0); Mean Corpuscular Hemoglobin 27.7 pg (27.0-31.0); Mean Corpuscular Volume 78.7 fl (78.0-98.0); Platelet Count 123 10x3/uL (130-400); RBC Distribution Width 16.2 % (11.5-14.5); Red Blood Cell (RBC) Count 3.43 mill/uL (4.70-6.10); White Blood Cell (WBC) Count 21.2 10x3/uL (4.8-10.8)
[2023-03-06 04:53] LABS: Delete Auto Diff?? YES
[2023-03-06 05:09] LABS: Anion Gap 18 mmol/L (10-20); BUN (Urea Nitrogen) 102 mg/dL (8.4-25.7); Calc. Creatinine Clearance 17 mL/min (70-130); Calcium 7.9 mg/dL (7.8-10.44); Carbon Dioxide 22 mmol/L (23-31); Chloride 104 mmol/L (98-107); Estimated GFR 18; Glucose 259 mg/dL (83-110); Potassium 3.9 mmol/L (3.5-5.1); Sodium 140 mmol/L (136-145)
[2023-03-06 05:28] LABS: Anisocytosis MODERATE=16-30 cells HPF (0-5); Band 1 % (5-11); Burr Cells MODERATE= 6-15 cells HPF (0-1); CellaVision Operator ID lab.sh2; Macrocytosis SLIGHT = 6-15 cells HPF (0-5); Monocytes 2 % (0-10); Neutrophil 97 % (42-75); Nucleated RBC (Manual Ct) 1 % (0); Ovalocytes MODERATE= 6-15 cells HPF (0-1); Platelet Adequacy Comment Platelets Decreased; Poikilocytosis MODERATE=16-30 cells HPF (0-5); Polychromasia SLIGHT = 2-3 cells HPF (0-2); Target Cells SLIGHT = 2-5 cells HPF (0-1); Total Cell Count 100; Vacuoles SLIGHT
[2023-03-06 08:08] LABS: Base Excess (BEa) -4.1 mEq/L (-2.0 to +3.0); CO2 Tension 38.3 mmHg (35.0-45.0); Carboxyhemoglobin (COHb) 0.3 gm% (0.0-3.0); Hematocrit-ABG 30 % (42.0-52.0); Hemoglobin (Hb) 10.3 g/dL (14.0-18.0); Potassium - ABG Lab 3.82 mmol/L (3.70-5.30); pH, Arterial 7.356 (7.35-7.45)
[2023-03-06 08:27] LABS: O2 Tension (PaO2), arterial 57.2 mmHg (> 60.0)
[2023-03-06 08:28] LABS: ALV-art Gradient 394.025 mmHg (0-20); Puncture Site LRA
[2023-03-06] MEDS: Piperacillin/Tazobactam 3.375 GM in Sodium Chloride 0.9% 100 ML IVPB SCH ×2 (08:31→20:06)
[2023-03-06] MEDS: Aspirin Chewable 81 MG TAB PO SCH (10:36)
[2023-03-06] MEDS: Insulin Glargine 30 UNITS/0.3 ML VIAL SC SCH (10:37)
[2023-03-06] MEDS: Heparin 5,000 UNITS/ML VIAL SC SCH ×2 (10:37→20:07)
[2023-03-06] MEDS: Pantoprazole 40 MG VIAL IVP SCH (10:37)
[2023-03-06] MEDS: Polyethylene Glycol 3350 17 GM Packet PO SCH (10:46)
[2023-03-06] MEDS: Senokot S 8.6-50 MG TAB PO SCH ×2 (10:46→20:06)
[2023-03-06] MEDS: Fentanyl CADD 100 ML IV SCH (18:29)
[2023-03-06 18:32] LABS: Platelet Count 130 10x3/uL (130-400)
[2023-03-06 18:42] LABS: INR-International Normal Ratio 1.1; Prothrombin Time 14.5 sec (12.0-14.7)
[2023-03-06 18:43] LABS: Fibrinogen 564 mg/dL (253-463); PTT 29.8 sec (22.9-36.1)
[2023-03-06 18:52] LABS: D-Dimer Test 4.66 *mcg/mL (0.27-0.43)
[2023-03-06] MEDS ORDERED: Albumin 25% 25 GM (100 mL) BOT IVPB SCH (19:00)
[2023-03-06] MEDS: Atorvastatin Calcium 40 MG TAB PO SCH (20:06)
[2023-03-07] MEDS: Ipratropium/Albuterol 3 ML NEB NEB SCH ×6 (03:11→22:56)
[2023-03-07 04:41] LABS: Hematocrit 24.8 % (42.0-52.0); Hemoglobin 8.8 g/dL (14.0-18.0); Manual Diff?? YES; Mean Corpuscular HGB CONC 35.5 g/dL (32.0-36.0); Mean Corpuscular Hemoglobin 27.8 pg (27.0-31.0); Mean Corpuscular Volume 78.5 fl (78.0-98.0); Platelet Count 139 10x3/uL (130-400); RBC Distribution Width 15.8 % (11.5-14.5); Red Blood Cell (RBC) Count 3.16 mill/uL (4.70-6.10)
[2023-03-07 04:44] LABS: Delete Auto Diff?? YES
[2023-03-07 05:09] LABS: Anion Gap 18 mmol/L (10-20); BUN (Urea Nitrogen) 59 mg/dL (8.4-25.7); Calc. Creatinine Clearance 23 mL/min (70-130); Calcium 7.8 mg/dL (7.8-10.44); Carbon Dioxide 23 mmol/L (23-31); Chloride 99 mmol/L (98-107); Estimated GFR 25; Glucose 184 mg/dL (83-110); Potassium 3.9 mmol/L (3.5-5.1); Sodium 136 mmol/L (136-145)
[2023-03-07] MEDS: HumaLOG 300 UNITS/3 ML VIAL SC PRN ×3 (05:16→22:11)
[2023-03-07 06:01] LABS: Anisocytosis SLIGHT = 6-15 cells HPF (0-5); Band 7 % (5-11); CellaVision Operator ID LAB.CLH1; Elliptocytes SLIGHT = 2-5 cells HPF (0-1); Hypochromia SLIGHT = 6-15 cells HPF (0-5); Large Platelets 5.1 % (0-5); Microcytosis SLIGHT = 6-15 cells HPF (0-5); Neutrophil 93 % (42-75); Platelet Adequacy Comment Platelets Normal; Polychromasia SLIGHT = 2-3 cells HPF (0-2); Target Cells SLIGHT = 2-5 cells HPF (0-1); Total Cell Count 99
[2023-03-07] MEDS: Piperacillin/Tazobactam 3.375 GM in Sodium Chloride 0.9% 100 ML IVPB SCH ×2 (08:56→20:55)
[2023-03-07] MEDS: methylPREDNISolone Sod Succ 40 MG VIAL IVP SCH ×2 (08:58→21:33)
[2023-03-07] MEDS: Pantoprazole 40 MG VIAL IVP SCH (08:58)
[2023-03-07] MEDS: Insulin Glargine 30 UNITS/0.3 ML VIAL SC SCH (08:59)
[2023-03-07] MEDS: Aspirin Chewable 81 MG TAB PO SCH (09:01)
[2023-03-07] MEDS: Senokot S 8.6-50 MG TAB PO SCH ×2 (09:38→21:40)
[2023-03-07] MEDS: Polyethylene Glycol 3350 17 GM Packet PO SCH (09:38)
[2023-03-07] MEDS: Midodrine HCl 5 MG TAB PO SCH ×3 (10:00→21:39)
[2023-03-07] MEDS: Albumin 25% 25 GM (100 mL) BOT IVPB SCH ×2 (10:57→17:20)
[2023-03-07] MEDS: Lorazepam 2 MG/ML VIAL SLOW IVP PRN (14:28)
[2023-03-07] MEDS: Atorvastatin Calcium 40 MG TAB PO SCH (21:39)
[2023-03-08] MEDS: Ipratropium/Albuterol 3 ML NEB NEB SCH ×6 (02:33→22:19)
[2023-03-08 04:35] LABS: #Monocytes 0.2 thou/uL (0.11-0.59); %Monocytes 0.9 % (0.0-10.0); %Neutrophils 97.2 % (42.0-75.0); Hematocrit 20.4 % (42.0-52.0); Hemoglobin 7.3 g/dL (14.0-18.0); Mean Corpuscular HGB CONC 35.8 g/dL (32.0-36.0); Mean Corpuscular Hemoglobin 28.4 pg (27.0-31.0); Mean Corpuscular Volume 79.4 fl (78.0-98.0); Mean Platelet Volume 13.3 fL (7.4-10.4); Platelet Count 182 10x3/uL (130-400); RBC Distribution Width 15.5 % (11.5-14.5); Red Blood Cell (RBC) Count 2.57 mill/uL (4.70-6.10); White Blood Cell (WBC) Count 20.5 10x3/uL (4.8-10.8)
[2023-03-08] MEDS: HumaLOG 300 UNITS/3 ML VIAL SC PRN ×2 (04:42→16:55)
[2023-03-08 05:07] LABS: Anion Gap 19 mmol/L (10-20); BUN (Urea Nitrogen) 97 mg/dL (8.4-25.7); Calc. Creatinine Clearance 15 mL/min (70-130); Calcium 8.1 mg/dL (7.8-10.44); Carbon Dioxide 23 mmol/L (23-31); Chloride 98 mmol/L (98-107); Estimated GFR 15; Glucose 257 mg/dL (83-110); Potassium 3.7 mmol/L (3.5-5.1); Sodium 136 mmol/L (136-145)
[2023-03-08 08:33] LABS: Polychromasia SLIGHT = 2-3 cells (100X) (0-2/hpf)
[2023-03-08] MEDS: Piperacillin/Tazobactam 3.375 GM in Sodium Chloride 0.9% 100 ML IVPB SCH ×2 (09:17→20:50)
[2023-03-08] MEDS: Midodrine HCl 5 MG TAB PO SCH ×4 (09:21→20:52)
[2023-03-08] MEDS: Senokot S 8.6-50 MG TAB PO SCH ×2 (09:21→20:52)
[2023-03-08] MEDS: Polyethylene Glycol 3350 17 GM Packet PO SCH (09:21)
[2023-03-08] MEDS: Pantoprazole 40 MG VIAL IVP SCH (09:22)
[2023-03-08] MEDS: methylPREDNISolone Sod Succ 40 MG VIAL IVP SCH ×2 (09:22→20:51)
[2023-03-08] MEDS: Insulin Glargine 30 UNITS/0.3 ML VIAL SC SCH ×2 (09:22→09:50)
[2023-03-08] MEDS: Aspirin Chewable 81 MG TAB PO SCH (10:09)
[2023-03-08] MEDS: Lorazepam 2 MG/ML VIAL SLOW IVP PRN ×2 (17:02→23:30)
[2023-03-08] MEDS ORDERED: Acetaminophen 325 MG TAB ONE (20:47)
[2023-03-08] MEDS: Atorvastatin Calcium 40 MG TAB PO SCH (20:52)
[2023-03-08] MEDS: Acetaminophen 325 MG TAB PO PRN (20:52)
[2023-03-09] MEDS: Ipratropium/Albuterol 3 ML NEB NEB SCH ×6 (02:14→22:35)
[2023-03-09] MEDS: Morphine 2 MG/ML VIAL SLOW IVP PRN ×4 (02:55→18:07)
[2023-03-09] MEDS: HumaLOG 300 UNITS/3 ML VIAL SC PRN ×2 (04:18→16:29)
[2023-03-09 04:36] LABS: #Monocytes 0.3 thou/uL (0.11-0.59); #Neutrophils 23.5 thou/uL (1.40-6.50); %Basophils 0.1 % (0.0-1.0); %Lymphocytes 0.9 % (21.0-51.0); %Monocytes 1.2 % (0.0-10.0); %Neutrophils 96.9 % (42.0-75.0); Hematocrit 19.1 % (42.0-52.0); Mean Corpuscular HGB CONC 36.6 g/dL (32.0-36.0); Mean Corpuscular Hemoglobin 28.5 pg (27.0-31.0); Mean Corpuscular Volume 77.6 fl (78.0-98.0); Mean Platelet Volume 13.1 fL (7.4-10.4); Platelet Count 250 10x3/uL (130-400); RBC Distribution Width 15.2 % (11.5-14.5); Red Blood Cell (RBC) Count 2.46 mill/uL (4.70-6.10); White Blood Cell (WBC) Count 24.3 10x3/uL (4.8-10.8)
[2023-03-09 05:01] LABS: Anion Gap 22 mmol/L (10-20); BUN (Urea Nitrogen) 124 mg/dL (8.4-25.7); Calc. Creatinine Clearance 12 mL/min (70-130); Carbon Dioxide 20 mmol/L (23-31); Chloride 97 mmol/L (98-107); Estimated GFR 11; Glucose 293 mg/dL (83-110); Potassium 3.7 mmol/L (3.5-5.1); Sodium 135 mmol/L (136-145)
[2023-03-09] MEDS: Lorazepam 2 MG/ML VIAL SLOW IVP PRN ×4 (05:45→18:07)
[2023-03-09 08:04] LABS: Hematocrit 19.5 % (42.0-52.0); Hemoglobin 7.2 g/dL (14.0-18.0); Mean Corpuscular HGB CONC 36.9 g/dL (32.0-36.0); Mean Corpuscular Hemoglobin 28.5 pg (27.0-31.0); Mean Corpuscular Volume 77.1 fl (78.0-98.0); Platelet Count 237 10x3/uL (130-400); RBC Distribution Width 15.1 % (11.5-14.5); Red Blood Cell (RBC) Count 2.53 mill/uL (4.70-6.10); White Blood Cell (WBC) Count 24.4 10x3/uL (4.8-10.8)
[2023-03-09] MEDS: methylPREDNISolone Sod Succ 40 MG VIAL IVP SCH ×2 (09:36→21:48)
[2023-03-09] MEDS: Polyethylene Glycol 3350 17 GM Packet PO SCH (09:36)
[2023-03-09] MEDS: Pantoprazole 40 MG VIAL IVP SCH (09:37)
[2023-03-09] MEDS: Senokot S 8.6-50 MG TAB PO SCH ×2 (09:37→21:48)
[2023-03-09] MEDS: Midodrine HCl 5 MG TAB PO SCH ×3 (09:37→21:48)
[2023-03-09] MEDS ORDERED: Morphine 4 MG/ML VIAL SLOW IVP SCH (10:45)
[2023-03-09] MEDS ORDERED: Heparin 10,000 UNITS/ 10 ML VIAL ONE (10:56)
[2023-03-09 11:14] LABS: Glucose 142 mg/dL (83-110)
[2023-03-09] MEDS: Insulin Glargine 30 UNITS/0.3 ML VIAL SC SCH (11:30)
[2023-03-09] MEDS ORDERED: Albumin 25% 25 GM (100 mL) BOT IVPB SCH (11:45)
[2023-03-09] MEDS: Piperacillin/Tazobactam 3.375 GM in Sodium Chloride 0.9% 100 ML IVPB SCH ×2 (13:33→15:36)
[2023-03-09 16:23] LABS: Hemoglobin 7.7 g/dL (14.0-18.0)
[2023-03-09] MEDS: Atorvastatin Calcium 40 MG TAB PO SCH (21:47)
[2023-03-10] MEDS: Ipratropium/Albuterol 3 ML NEB NEB SCH ×6 (02:28→23:47)
[2023-03-10 04:03] LABS: #Monocytes 0.5 thou/uL (0.11-0.59); #Neutrophils 22.8 thou/uL (1.40-6.50); %Basophils 0.1 % (0.0-1.0); %Lymphocytes 0.8 % (21.0-51.0); %Monocytes 2.1 % (0.0-10.0); %Neutrophils 96.1 % (42.0-75.0); Hematocrit 21.4 % (42.0-52.0); Hemoglobin 7.8 g/dL (14.0-18.0); Mean Corpuscular HGB CONC 36.4 g/dL (32.0-36.0); Mean Corpuscular Hemoglobin 28.4 pg (27.0-31.0); Mean Corpuscular Volume 77.8 fl (78.0-98.0); Mean Platelet Volume 12.4 fL (7.4-10.4); Platelet Count 266 10x3/uL (130-400); RBC Distribution Width 15.1 % (11.5-14.5); Red Blood Cell (RBC) Count 2.75 mill/uL (4.70-6.10); White Blood Cell (WBC) Count 23.7 10x3/uL (4.8-10.8)
[2023-03-10 04:29] LABS: Anion Gap 17 mmol/L (10-20); BUN (Urea Nitrogen) 67 mg/dL (8.4-25.7); Calc. Creatinine Clearance 17 mL/min (70-130); Calcium 7.9 mg/dL (7.8-10.44); Carbon Dioxide 23 mmol/L (23-31); Chloride 96 mmol/L (98-107); Estimated GFR 18; Glucose 239 mg/dL (83-110); Potassium 3.4 mmol/L (3.5-5.1); Sodium 133 mmol/L (136-145)
[2023-03-10] MEDS: Piperacillin/Tazobactam 3.375 GM in Sodium Chloride 0.9% 100 ML IVPB SCH ×2 (05:13→15:26)
[2023-03-10] MEDS: HumaLOG 300 UNITS/3 ML VIAL SC PRN ×2 (05:24→22:11)
[2023-03-10] MEDS ORDERED: Potassium Chloride 10 MEQ in Premix 1 BAG IVPB SCH (06:00)
[2023-03-10 07:45] LABS: Base Excess (BEa) -0.8 mEq/L (-2.0 to +3.0); CO2 Tension 30.4 mmHg (35.0-45.0); Calcium, Ionized (arterial) 1.06 mmol/L (1.12-1.30); Carboxyhemoglobin (COHb) 0.7 gm% (0.0-3.0); Hematocrit-ABG 33 % (42.0-52.0); Hemoglobin (Hb) 11.2 g/dL (14.0-18.0); O2 Tension (PaO2), arterial 61.6 mmHg (> 60.0); Potassium - ABG Lab 3.63 mmol/L (3.70-5.30); pH, Arterial 7.478 (7.35-7.45)
[2023-03-10 07:50] LABS: Puncture Site RRA
[2023-03-10] MEDS: Polyethylene Glycol 3350 17 GM Packet PO SCH (08:49)
[2023-03-10] MEDS: Pantoprazole 40 MG VIAL IVP SCH (08:49)
[2023-03-10] MEDS: Midodrine HCl 5 MG TAB PO SCH ×3 (08:49→20:32)
[2023-03-10] MEDS: Senokot S 8.6-50 MG TAB PO SCH ×2 (08:49→20:32)
[2023-03-10] MEDS: methylPREDNISolone Sod Succ 40 MG VIAL IVP SCH (08:50)
[2023-03-10] MEDS: Insulin Glargine 30 UNITS/0.3 ML VIAL SC SCH (09:10)
[2023-03-10] MEDS: Atorvastatin Calcium 40 MG TAB PO SCH (20:33)
[2023-03-10] MEDS ORDERED: methylPREDNISolone Sod Succ 40 MG VIAL IVP SCH (21:00)
[2023-03-11] MEDS: Ipratropium/Albuterol 3 ML NEB NEB SCH ×6 (02:41→22:51)
[2023-03-11] MEDS: Piperacillin/Tazobactam 3.375 GM in Sodium Chloride 0.9% 100 ML IVPB SCH (03:55)
[2023-03-11 05:08] LABS: #Monocytes 0.6 thou/uL (0.11-0.59); #Neutrophils 16.1 thou/uL (1.40-6.50); %Basophils 0.1 % (0.0-1.0); %Eosinophils 0.1 % (0.0-10.0); %Lymphocytes 1.9 % (21.0-51.0); %Monocytes 3.3 % (0.0-10.0); %Neutrophils 93.8 % (42.0-75.0); Hematocrit 18.8 % (42.0-52.0); Hemoglobin 6.8 g/dL (14.0-18.0); Mean Corpuscular HGB CONC 36.2 g/dL (32.0-36.0); Mean Corpuscular Hemoglobin 28.6 pg (27.0-31.0); Mean Platelet Volume 13.1 fL (7.4-10.4); Platelet Count 265 10x3/uL (130-400); RBC Distribution Width 15.6 % (11.5-14.5); Red Blood Cell (RBC) Count 2.38 mill/uL (4.70-6.10); White Blood Cell (WBC) Count 17.1 10x3/uL (4.8-10.8)
[2023-03-11 05:34] LABS: Anion Gap 20 mmol/L (10-20); BUN (Urea Nitrogen) 92 mg/dL (8.4-25.7); Calc. Creatinine Clearance 13 mL/min (70-130); Calcium 7.6 mg/dL (7.8-10.44); Carbon Dioxide 22 mmol/L (23-31); Chloride 95 mmol/L (98-107); Estimated GFR 13; Glucose 205 mg/dL (83-110); Potassium 3.7 mmol/L (3.5-5.1); Sodium 133 mmol/L (136-145)
[2023-03-11 07:13] LABS: Actual Bicarbonate (HCO3a) 21.1 mEq/L (22-28); Base Excess (BEa) -1.8 mEq/L (-2.0 to +3.0); CO2 Tension 30.9 mmHg (35.0-45.0); Calcium, Ionized (arterial) 1.07 mmol/L (1.12-1.30); Carboxyhemoglobin (COHb) 0.9 gm% (0.0-3.0); Hematocrit-ABG 41 % (42.0-52.0); Hemoglobin (Hb) 13.8 g/dL (14.0-18.0); Potassium - ABG Lab 3.72 mmol/L (3.70-5.30); pH, Arterial 7.452 (7.35-7.45)
[2023-03-11 07:15] LABS: ALV-art Gradient 188.575 mmHg (0-20); Puncture Site RRA
[2023-03-11] MEDS ORDERED: Polyethylene Glycol 3350 17 GM Packet PO PRN (08:11)
[2023-03-11] MEDS ORDERED: Senokot S 8.6-50 MG TAB PO PRN (08:11)
[2023-03-11] MEDS: Midodrine HCl 5 MG TAB PO SCH ×3 (08:31→20:08)
[2023-03-11] MEDS ORDERED: Heparin 10,000 UNITS/ 10 ML VIAL ONE (08:49)
[2023-03-11 09:32] LABS: Glucose 220 mg/dL (83-110)
[2023-03-11] MEDS: Insulin Glargine 30 UNITS/0.3 ML VIAL SC SCH (10:10)
[2023-03-11] MEDS: Lansoprazole 15 MG/5 ML (BATCHED)UDCUP PER TUBE SCH (10:10)
[2023-03-11] MEDS ORDERED: Morphine 4 MG/ML VIAL SLOW IVP SCH ×2 (14:00→15:30)
[2023-03-11] MEDS: Dexmedetomidine 400 MCG, Admixture Fee 1 EACH in Sodium Chloride 0.9% 96 ML IVPB SCH ×2 (14:56→22:28)
[2023-03-11] MEDS: Morphine 4 MG/ML VIAL SLOW IVP PRN (15:33)
[2023-03-11 16:20] LABS: Glucose 81 mg/dL (83-110)
[2023-03-11] MEDS ORDERED: Sodium Chloride 0.9% 500 ML IV SCH ×2 (17:30→21:15)
[2023-03-11] MEDS ORDERED: Calcium Chloride 1 GM/10 ML Abboject SYRINGE IVP SCH (18:15)
[2023-03-11] MEDS: Atorvastatin Calcium 40 MG TAB PO SCH (20:08)
[2023-03-11 22:41] LABS: Glucose 64 mg/dL (83-110)
[2023-03-12] MEDS ORDERED: Albumin 25% 25 GM (100 mL) BOT IVPB SCH (01:00)
[2023-03-12] MEDS: Ipratropium/Albuterol 3 ML NEB NEB SCH ×6 (02:29→22:04)
[2023-03-12 04:01] LABS: #Eosinphils 0.1 thou/uL (0.0-0.7); #Monocytes 0.6 thou/uL (0.11-0.59); #Neutrophils 16.1 thou/uL (1.40-6.50); %Basophils 0.1 % (0.0-1.0); %Eosinophils 0.7 % (0.0-10.0); %Lymphocytes 2.3 % (21.0-51.0); %Monocytes 3.5 % (0.0-10.0); %Neutrophils 92.5 % (42.0-75.0); Hematocrit 20.4 % (42.0-52.0); Hemoglobin 7.3 g/dL (14.0-18.0); Mean Corpuscular HGB CONC 35.8 g/dL (32.0-36.0); Mean Corpuscular Hemoglobin 29.3 pg (27.0-31.0); Mean Platelet Volume 12.4 fL (7.4-10.4); Platelet Count 244 10x3/uL (130-400); RBC Distribution Width 15.4 % (11.5-14.5); Red Blood Cell (RBC) Count 2.49 mill/uL (4.70-6.10); White Blood Cell (WBC) Count 17.4 10x3/uL (4.8-10.8)
[2023-03-12 04:24] LABS: Anion Gap 15 mmol/L (10-20); BUN (Urea Nitrogen) 46 mg/dL (8.4-25.7); Calc. Creatinine Clearance 20 mL/min (70-130); Calcium 7.7 mg/dL (7.8-10.44); Carbon Dioxide 25 mmol/L (23-31); Chloride 102 mmol/L (98-107); Estimated GFR 21; Glucose 98 mg/dL (83-110); Potassium 3.1 mmol/L (3.5-5.1); Sodium 139 mmol/L (136-145)
[2023-03-12 05:39] LABS: Mean Corpuscular Volume 81.9 fl (78.0-98.0)
[2023-03-12 07:36] LABS: Base Excess (BEa) 0.3 mEq/L (-2.0 to +3.0); CO2 Tension 34.9 mmHg (35.0-45.0); Calcium, Ionized (arterial) 1.09 mmol/L (1.12-1.30); Carboxyhemoglobin (COHb) 0.9 gm% (0.0-3.0); Hematocrit-ABG 27 % (42.0-52.0); Hemoglobin (Hb) 9.3 g/dL (14.0-18.0); O2 Tension (PaO2), arterial 66.8 mmHg (> 60.0); Potassium - ABG Lab 3.08 mmol/L (3.70-5.30); pH, Arterial 7.455 (7.35-7.45)
[2023-03-12 07:39] LABS: ALV-art Gradient 388.675 mmHg (0-20); Puncture Site RRA
[2023-03-12] MEDS: Insulin Glargine 30 UNITS/0.3 ML VIAL SC SCH (08:32)
[2023-03-12] MEDS: Midodrine HCl 5 MG TAB PO SCH ×3 (08:32→21:25)
[2023-03-12] MEDS: Lansoprazole 15 MG/5 ML (BATCHED)UDCUP PER TUBE SCH (09:42)
[2023-03-12 10:35] LABS: Glucose 95 mg/dL (83-110)
[2023-03-12] MEDS ORDERED: Potassium Chloride 20 MEQ in Premix 1 BAG IVPB SCH (10:45)
[2023-03-12 18:30] LABS: Glucose 115 mg/dL (83-110)
[2023-03-12] MEDS: Atorvastatin Calcium 40 MG TAB PO SCH (21:25)
[2023-03-12] MEDS: HumaLOG 300 UNITS/3 ML VIAL SC PRN (23:50)
[2023-03-13] MEDS: Ipratropium/Albuterol 3 ML NEB NEB SCH ×6 (02:13→21:47)
[2023-03-13 03:53] LABS: #Eosinphils 0.1 thou/uL (0.0-0.7); #Monocytes 0.5 thou/uL (0.11-0.59); #Neutrophils 13.5 thou/uL (1.40-6.50); %Basophils 0.1 % (0.0-1.0); %Eosinophils 0.4 % (0.0-10.0); %Lymphocytes 2.7 % (21.0-51.0); %Monocytes 3.6 % (0.0-10.0); %Neutrophils 92.4 % (42.0-75.0); Hematocrit 21.2 % (42.0-52.0); Hemoglobin 7.5 g/dL (14.0-18.0); Mean Corpuscular HGB CONC 35.4 g/dL (32.0-36.0); Mean Corpuscular Hemoglobin 29.2 pg (27.0-31.0); Mean Corpuscular Volume 82.5 fl (78.0-98.0); Mean Platelet Volume 12.5 fL (7.4-10.4); Platelet Count 245 10x3/uL (130-400); RBC Distribution Width 16.3 % (11.5-14.5); Red Blood Cell (RBC) Count 2.57 mill/uL (4.70-6.10); White Blood Cell (WBC) Count 14.6 10x3/uL (4.8-10.8)
[2023-03-13 05:25] LABS: Anion Gap 16 mmol/L (10-20); BUN (Urea Nitrogen) 67 mg/dL (8.4-25.7); Calc. Creatinine Clearance 15 mL/min (70-130); Calcium 7.9 mg/dL (7.8-10.44); Carbon Dioxide 24 mmol/L (23-31); Chloride 100 mmol/L (98-107); Estimated GFR 15; Glucose 160 mg/dL (83-110); Potassium 3.6 mmol/L (3.5-5.1); Sodium 136 mmol/L (136-145)
[2023-03-13] MEDS: HumaLOG 300 UNITS/3 ML VIAL SC PRN (05:36)
[2023-03-13] MEDS ORDERED: Heparin 10,000 UNITS/ 10 ML VIAL ONE (08:46)
[2023-03-13] MEDS: Midodrine HCl 5 MG TAB PO SCH ×3 (09:39→21:58)
[2023-03-13] MEDS: Insulin Glargine 30 UNITS/0.3 ML VIAL SC SCH (09:39)
[2023-03-13] MEDS: Lansoprazole 15 MG/5 ML (BATCHED)UDCUP PER TUBE SCH (09:41)
[2023-03-13 09:49] LABS: Glucose 146 mg/dL (83-110)
[2023-03-13] MEDS ORDERED: Metoclopramide HCl 10 MG (2 mL) VIAL IVP PRN (11:41)
[2023-03-13] MEDS: Albumin 25% 25 GM (100 mL) BOT IVPB SCH ×2 (11:45→15:17)
[2023-03-13] MEDS: Atorvastatin Calcium 40 MG TAB PO SCH (21:58)
[2023-03-13] MEDS: Heparin 5,000 UNITS/ML VIAL SC SCH (21:59)
[2023-03-14] MEDS: Ipratropium/Albuterol 3 ML NEB NEB SCH ×6 (02:11→21:36)
[2023-03-14 04:02] LABS: Lactic Acid 1.6 mmol/L (0.5-2.2)
[2023-03-14] MEDS ORDERED: Aspirin 81 mg Enteric Coated Tablet PO SCH (09:00)
[2023-03-14] MEDS: Midodrine HCl 5 MG TAB PO SCH ×3 (10:07→20:57)
[2023-03-14] MEDS: Insulin Glargine 30 UNITS/0.3 ML VIAL SC SCH (10:07)
[2023-03-14] MEDS: Lansoprazole 15 MG/5 ML (BATCHED)UDCUP PER TUBE SCH (10:09)
[2023-03-14] MEDS: Heparin 5,000 UNITS/ML VIAL SC SCH ×2 (10:09→20:57)
[2023-03-14 15:30] LABS: CSF Source CSF; Clarity Clear (Clear); Tube # 4
[2023-03-14] MEDS: Dextrose 50% Abboject 50 ML SYRINGE SLOW IVP PRN (16:08)
[2023-03-14] MEDS: Atorvastatin Calcium 40 MG TAB PO SCH (20:57)
[2023-03-15] MEDS: Ipratropium/Albuterol 3 ML NEB NEB SCH ×6 (02:14→22:39)
[2023-03-15 03:31] LABS: #Monocytes 0.9 thou/uL (0.11-0.59); #Neutrophils 12.7 thou/uL (1.40-6.50); %Basophils 0.1 % (0.0-1.0); %Eosinophils 0.1 % (0.0-10.0); %Lymphocytes 3.9 % (21.0-51.0); %Monocytes 6.1 % (0.0-10.0); %Neutrophils 89.2 % (42.0-75.0); Hematocrit 21.7 % (42.0-52.0); Hemoglobin 7.7 g/dL (14.0-18.0); Mean Corpuscular HGB CONC 35.5 g/dL (32.0-36.0); Mean Corpuscular Hemoglobin 28.9 pg (27.0-31.0); Mean Corpuscular Volume 81.6 fl (78.0-98.0); Mean Platelet Volume 12.3 fL (7.4-10.4); Platelet Count 244 10x3/uL (130-400); Red Blood Cell (RBC) Count 2.66 mill/uL (4.70-6.10); White Blood Cell (WBC) Count 14.2 10x3/uL (4.8-10.8)
[2023-03-15 03:57] LABS: Anion Gap 18 mmol/L (10-20); BUN (Urea Nitrogen) 63 mg/dL (8.4-25.7); Calc. Creatinine Clearance 14 mL/min (70-130); Calcium 7.7 mg/dL (7.8-10.44); Carbon Dioxide 23 mmol/L (23-31); Chloride 99 mmol/L (98-107); Estimated GFR 13; Glucose 94 mg/dL (83-110); Potassium 3.8 mmol/L (3.5-5.1); Sodium 136 mmol/L (136-145)
[2023-03-15 08:24] LABS: Actual Bicarbonate (HCO3a) 24.3 mEq/L (22-28); Base Excess (BEa) 1.1 mEq/L (-2.0 to +3.0); CO2 Tension 32.9 mmHg (35.0-45.0); Calcium, Ionized (arterial) 1.06 mmol/L (1.12-1.30); Carboxyhemoglobin (COHb) 0.7 gm% (0.0-3.0); Hematocrit-ABG 25 % (42.0-52.0); Hemoglobin (Hb) 8.6 g/dL (14.0-18.0); Potassium - ABG Lab 3.61 mmol/L (3.70-5.30); pH, Arterial 7.487 (7.35-7.45)
[2023-03-15 08:26] LABS: O2 Tension (PaO2), arterial 56.3 mmHg (> 60.0)
[2023-03-15 08:27] LABS: ALV-art Gradient 223.425 mmHg (0-20); Puncture Site Right Radial
[2023-03-15] MEDS: Insulin Glargine 30 UNITS/0.3 ML VIAL SC SCH (08:59)
[2023-03-15] MEDS: Aspirin Chewable 81 MG TAB PER TUBE SCH (09:51)
[2023-03-15] MEDS: Midodrine HCl 5 MG TAB PO SCH ×3 (09:51→21:34)
[2023-03-15] MEDS: Lansoprazole 15 MG/5 ML (BATCHED)UDCUP PER TUBE SCH (09:51)
[2023-03-15] MEDS: Heparin 5,000 UNITS/ML VIAL SC SCH ×2 (09:52→21:22)
[2023-03-15] MEDS ORDERED: hydrALAZINE 20 MG/ML VIAL SLOW IVP PRN (13:17)
[2023-03-15] MEDS: Atorvastatin Calcium 40 MG TAB PO SCH (21:22)
[2023-03-16] MEDS: Ipratropium/Albuterol 3 ML NEB NEB SCH ×6 (02:07→22:55)
[2023-03-16] MEDS: HumaLOG 300 UNITS/3 ML VIAL SC PRN (05:14)
[2023-03-16 08:13] LABS: Actual Bicarbonate (HCO3a) 21.6 mEq/L (22-28); Base Excess (BEa) -1.5 mEq/L (-2.0 to +3.0); Calcium, Ionized (arterial) 1.06 mmol/L (1.12-1.30); Carboxyhemoglobin (COHb) 0.5 gm% (0.0-3.0); Hematocrit-ABG 25 % (42.0-52.0); Hemoglobin (Hb) 8.4 g/dL (14.0-18.0); O2 Tension (PaO2), arterial 66.8 mmHg (> 60.0); pH, Arterial 7.475 (7.35-7.45)
[2023-03-16 08:15] LABS: Puncture Site RBA
[2023-03-16 09:01] LABS: #Eosinphils 0.1 thou/uL (0.0-0.7); #Monocytes 0.8 thou/uL (0.11-0.59); %Basophils 0.1 % (0.0-1.0); %Eosinophils 0.6 % (0.0-10.0); %Lymphocytes 3.3 % (21.0-51.0); %Monocytes 6.2 % (0.0-10.0); %Neutrophils 89.2 % (42.0-75.0); Hematocrit 21.8 % (42.0-52.0); Hemoglobin 7.6 g/dL (14.0-18.0); Mean Corpuscular HGB CONC 34.9 g/dL (32.0-36.0); Mean Corpuscular Hemoglobin 28.7 pg (27.0-31.0); Mean Corpuscular Volume 82.3 fl (78.0-98.0); Mean Platelet Volume 11.7 fL (7.4-10.4); Platelet Count 239 10x3/uL (130-400); RBC Distribution Width 16.6 % (11.5-14.5); Red Blood Cell (RBC) Count 2.65 mill/uL (4.70-6.10); White Blood Cell (WBC) Count 13.5 10x3/uL (4.8-10.8)
[2023-03-16 09:26] LABS: Anion Gap 17 mmol/L (10-20); BUN (Urea Nitrogen) 82 mg/dL (8.4-25.7); Calc. Creatinine Clearance 11 mL/min (70-130); Calcium 7.6 mg/dL (7.8-10.44); Carbon Dioxide 23 mmol/L (23-31); Chloride 97 mmol/L (98-107); Estimated GFR 10; Glucose 148 mg/dL (83-110); Sodium 133 mmol/L (136-145)
[2023-03-16] MEDS: Heparin 5,000 UNITS/ML VIAL SC SCH ×2 (09:42→20:41)
[2023-03-16] MEDS: Metoclopramide HCl 10 MG (2 mL) VIAL IVP SCH ×2 (09:43→16:49)
[2023-03-16] MEDS: Lansoprazole 15 MG/5 ML (BATCHED)UDCUP PER TUBE SCH (09:43)
[2023-03-16] MEDS: Aspirin Chewable 81 MG TAB PER TUBE SCH (09:43)
[2023-03-16] MEDS: Insulin Glargine 30 UNITS/0.3 ML VIAL SC SCH (09:43)
[2023-03-16] MEDS ORDERED: Albumin 25% 25 GM (100 mL) BOT IVPB PRN (09:56)
[2023-03-16] MEDS: Morphine 4 MG/ML VIAL SLOW IVP PRN (12:44)
[2023-03-16] MEDS: Atorvastatin Calcium 40 MG TAB PO SCH (20:41)
[2023-03-17] MEDS: Metoclopramide HCl 10 MG (2 mL) VIAL IVP SCH ×3 (01:18→16:47)
[2023-03-17] MEDS: Ipratropium/Albuterol 3 ML NEB NEB SCH ×6 (02:46→22:44)
[2023-03-17 04:51] LABS: #Eosinphils 0.1 thou/uL (0.0-0.7); #Monocytes 0.9 thou/uL (0.11-0.59); #Neutrophils 9.9 thou/uL (1.40-6.50); %Basophils 0.1 % (0.0-1.0); %Eosinophils 0.8 % (0.0-10.0); %Lymphocytes 3.6 % (21.0-51.0); Hematocrit 18.7 % (42.0-52.0); Hemoglobin 6.5 g/dL (14.0-18.0); Mean Corpuscular HGB CONC 34.8 g/dL (32.0-36.0); Mean Corpuscular Hemoglobin 28.6 pg (27.0-31.0); Mean Corpuscular Volume 82.4 fl (78.0-98.0); Mean Platelet Volume 12.3 fL (7.4-10.4); Platelet Count 188 10x3/uL (130-400); RBC Distribution Width 17.3 % (11.5-14.5); Red Blood Cell (RBC) Count 2.27 mill/uL (4.70-6.10); White Blood Cell (WBC) Count 11.3 10x3/uL (4.8-10.8)
[2023-03-17] MEDS: HumaLOG 300 UNITS/3 ML VIAL SC PRN (06:41)
[2023-03-17 07:28] LABS: Actual Bicarbonate (HCO3a) 26.5 mEq/L (22-28); Base Excess (BEa) 2.7 mEq/L (-2.0 to +3.0); Calcium, Ionized (arterial) 1.06 mmol/L (1.12-1.30); Carboxyhemoglobin (COHb) 0.9 gm% (0.0-3.0); Hematocrit-ABG 21 % (42.0-52.0); Hemoglobin (Hb) 7.3 g/dL (14.0-18.0); pH, Arterial 7.473 (7.35-7.45)
[2023-03-17 07:30] LABS: O2 Tension (PaO2), arterial 51.1 mmHg (> 60.0); Puncture Site LRA
[2023-03-17 07:45] LABS: Albumin 2.4 g/dL (3.4-4.8); Anion Gap 15 mmol/L (10-20); BUN (Urea Nitrogen) 50 mg/dL (8.4-25.7); BUN/Creatinine Ratio 12.82; Calc. Creatinine Clearance 14 mL/min (70-130); Calcium 7.6 mg/dL (7.8-10.44); Carbon Dioxide 25 mmol/L (23-31); Chloride 99 mmol/L (98-107); Estimated GFR 15; Glucose 148 mg/dL (83-110); Phosphorus 3.8 mg/dL (2.3-4.7); Potassium 3.5 mmol/L (3.5-5.1); Sodium 135 mmol/L (136-145)
[2023-03-17 08:57] LABS: Iron 10 ug/dL (65-175); Iron Binding Capacity, Total 89 mcg/dL (261-462)
[2023-03-17] MEDS ORDERED: Iron, Sodium Ferric Gluconate 250 MG in Sodium Chloride 0.9% 250 ML 250 ML IVPB SCH (09:00)
[2023-03-17] MEDS: Albumin 25% 25 GM (100 mL) BOT IVPB SCH ×3 (09:13→20:12)
[2023-03-17] MEDS: Aspirin Chewable 81 MG TAB PER TUBE SCH (09:13)
[2023-03-17] MEDS: Insulin Glargine 30 UNITS/0.3 ML VIAL SC SCH (09:14)
[2023-03-17] MEDS: Lansoprazole 15 MG/5 ML (BATCHED)UDCUP PER TUBE SCH (09:14)
[2023-03-17] MEDS: Heparin 5,000 UNITS/ML VIAL SC SCH (09:46)
[2023-03-17] MEDS ORDERED: Epoetin (ESRD) 10,000 UNITS/ML VIAL SC SCH (17:00)
[2023-03-17] MEDS ORDERED: EPOETIN ALFA-EPBX (ESRD) 10,000 UNITS/ML VIAL SC SCH (18:30)
[2023-03-17] MEDS: Atorvastatin Calcium 40 MG TAB PO SCH (19:26)
[2023-03-18] MEDS: Metoclopramide HCl 10 MG (2 mL) VIAL IVP SCH ×3 (01:24→16:30)
[2023-03-18] MEDS: Ipratropium/Albuterol 3 ML NEB NEB SCH ×6 (02:56→22:02)
[2023-03-18 05:38] LABS: #Eosinphils 0.2 thou/uL (0.0-0.7); #Monocytes 0.8 thou/uL (0.11-0.59); #Neutrophils 9.4 thou/uL (1.40-6.50); %Basophils 0.2 % (0.0-1.0); %Eosinophils 1.4 % (0.0-10.0); %Lymphocytes 4.4 % (21.0-51.0); %Monocytes 7.3 % (0.0-10.0); %Neutrophils 86.1 % (42.0-75.0); Hematocrit 17.1 % (42.0-52.0); Hemoglobin 5.9 g/dL (14.0-18.0); Mean Corpuscular HGB CONC 34.5 g/dL (32.0-36.0); Mean Corpuscular Hemoglobin 28.8 pg (27.0-31.0); Mean Corpuscular Volume 83.4 fl (78.0-98.0); Mean Platelet Volume 11.8 fL (7.4-10.4); Platelet Count 165 10x3/uL (130-400); RBC Distribution Width 17.2 % (11.5-14.5); Red Blood Cell (RBC) Count 2.05 mill/uL (4.70-6.10); White Blood Cell (WBC) Count 10.9 10x3/uL (4.8-10.8)
[2023-03-18 06:00] LABS: Critical Call w/ Read Back ICU.SW@0559
[2023-03-18] MEDS: Insulin Glargine 30 UNITS/0.3 ML VIAL SC SCH (09:25)
[2023-03-18] MEDS: Lansoprazole 15 MG/5 ML (BATCHED)UDCUP PER TUBE SCH (09:25)
[2023-03-18] MEDS: Cholecalciferol 10 MCG/ML (Vitamin D3) 50 ML BOT PO SCH (11:20)
[2023-03-18] MEDS: Acetaminophen 325 MG TAB PO PRN (15:35)
[2023-03-18] MEDS: Atorvastatin Calcium 40 MG TAB PO SCH (20:07)
[2023-03-19] MEDS: Metoclopramide HCl 10 MG (2 mL) VIAL IVP SCH ×3 (01:50→16:30)
[2023-03-19] MEDS: Ipratropium/Albuterol 3 ML NEB NEB SCH ×6 (02:14→21:41)
[2023-03-19 04:11] LABS: #Eosinphils 0.2 thou/uL (0.0-0.7); #Monocytes 0.7 thou/uL (0.11-0.59); #Neutrophils 8.4 thou/uL (1.40-6.50); %Basophils 0.2 % (0.0-1.0); %Eosinophils 1.8 % (0.0-10.0); %Lymphocytes 3.9 % (21.0-51.0); %Monocytes 7.4 % (0.0-10.0); %Neutrophils 86.1 % (42.0-75.0); Hematocrit 18.6 % (42.0-52.0); Hemoglobin 6.5 g/dL (14.0-18.0); Mean Corpuscular HGB CONC 34.9 g/dL (32.0-36.0); Mean Corpuscular Hemoglobin 28.9 pg (27.0-31.0); Mean Corpuscular Volume 82.7 fl (78.0-98.0); Mean Platelet Volume 12.1 fL (7.4-10.4); Platelet Count 185 10x3/uL (130-400); RBC Distribution Width 17.3 % (11.5-14.5); Red Blood Cell (RBC) Count 2.25 mill/uL (4.70-6.10); White Blood Cell (WBC) Count 9.8 10x3/uL (4.8-10.8)
[2023-03-19] MEDS: Lansoprazole 15 MG/5 ML (BATCHED)UDCUP PER TUBE SCH (08:10)
[2023-03-19] MEDS: Cholecalciferol 10 MCG/ML (Vitamin D3) 50 ML BOT PO SCH (08:10)
[2023-03-19] MEDS: Acetaminophen 325 MG TAB PO PRN (08:10)
[2023-03-19] MEDS: Insulin Glargine 30 UNITS/0.3 ML VIAL SC SCH (08:15)
[2023-03-19] MEDS ORDERED: Albumin 25% 25 GM (100 mL) BOT IVPB SCH (16:15)
[2023-03-19] MEDS: Albumin 25% 25 GM (100 mL) BOT IVPB SCH ×2 (17:15→23:43)
[2023-03-19] MEDS: Iron, Sodium Ferric Gluconate 250 MG in Sodium Chloride 0.9% 250 ML 250 ML IVPB SCH (17:35)
[2023-03-19 20:14] LABS: Hematocrit 20.3 % (42.0-52.0); Platelet Count 162 10x3/uL (130-400)
[2023-03-19] MEDS: Atorvastatin Calcium 40 MG TAB PO SCH (21:32)
[2023-03-19] MEDS: Morphine 4 MG/ML VIAL SLOW IVP PRN (23:06)
[2023-03-20] MEDS: Metoclopramide HCl 10 MG (2 mL) VIAL IVP SCH ×3 (01:21→17:06)
[2023-03-20] MEDS: Ipratropium/Albuterol 3 ML NEB NEB SCH ×6 (02:25→21:40)
[2023-03-20 04:20] LABS: Hematocrit 19.8 % (42.0-52.0); Hemoglobin 7.1 g/dL (14.0-18.0); Manual Diff?? YES; Mean Corpuscular HGB CONC 35.9 g/dL (32.0-36.0); Mean Corpuscular Volume 83.5 fl (78.0-98.0); Mean Platelet Volume 11.6 fL (7.4-10.4); Platelet Count 161 10x3/uL (130-400); RBC Distribution Width 18.5 % (11.5-14.5); Red Blood Cell (RBC) Count 2.37 mill/uL (4.70-6.10)
[2023-03-20 04:22] LABS: Delete Auto Diff?? YES
[2023-03-20 04:44] LABS: Anisocytosis MARKED = >30 cells HPF (0-5); Band 20 % (5-11); CellaVision Operator ID LAB.CLH1; Hypochromia SLIGHT = 6-15 cells HPF (0-5); Lymphocytes 3 % (21-51); Macrocytosis MODERATE=16-30 cells HPF (0-5); Monocytes 6 % (0-10); Neutrophil 70 % (42-75); Platelet Adequacy Comment Platelets Normal; Poikilocytosis SLIGHT = 6-15 cells HPF (0-5); Polychromasia MODERATE = 3-4 cells HPF (0-2); Target Cells SLIGHT = 2-5 cells HPF (0-1); Total Cell Count 101
[2023-03-20 04:47] LABS: Albumin 3.1 g/dL (3.4-4.8); Anion Gap 14 mmol/L (10-20); BUN (Urea Nitrogen) 30 mg/dL (8.4-25.7); Calc. Creatinine Clearance 21 mL/min (70-130); Calcium 8.5 mg/dL (7.8-10.44); Carbon Dioxide 27 mmol/L (23-31); Chloride 99 mmol/L (98-107); Estimated GFR 21; Glucose 77 mg/dL (83-110); Phosphorus 2.1 mg/dL (2.3-4.7); Potassium 4.2 mmol/L (3.5-5.1); Sodium 136 mmol/L (136-145)
[2023-03-20] MEDS: Albumin 25% 25 GM (100 mL) BOT IVPB SCH ×2 (06:32→12:31)
[2023-03-20] MEDS: Cholecalciferol 10 MCG/ML (Vitamin D3) 50 ML BOT PO SCH (08:54)
[2023-03-20] MEDS ORDERED: Heparin 10,000 UNITS/ 10 ML VIAL ONE (08:56)
[2023-03-20] MEDS: Lansoprazole 15 MG/5 ML (BATCHED)UDCUP PER TUBE SCH (08:57)
[2023-03-20] MEDS: Insulin Glargine 30 UNITS/0.3 ML VIAL SC SCH (09:09)
[2023-03-20] MEDS ORDERED: Ketamine In 0.9 % NaCl 50 MG/5 ML SYRINGE ONE (10:16)
[2023-03-20] MEDS ORDERED: Rocuronium Bromide 10 MG/ML (10ML VIAL) ONE (10:16)
[2023-03-20] MEDS ORDERED: Midazolam HCl 2 mg/2 ml Vial ONE (10:16)
[2023-03-20] MEDS ORDERED: fentaNYL 50 mcg/mL 1 mL Vial ONE (10:47)
[2023-03-20] MEDS ORDERED: CEFAZOLIN 1 GM VIAL ONE (10:48)
[2023-03-20] MEDS: Iron, Sodium Ferric Gluconate 250 MG in Sodium Chloride 0.9% 250 ML 250 ML IVPB SCH (17:02)
[2023-03-20] MEDS ORDERED: Lidocaine 1% (PF) 30 ML VIAL ONE (21:03)
[2023-03-20] MEDS ORDERED: Lidocaine 1% w/Epinephrine 1:100K 20 ML VIAL ONE (21:06)
[2023-03-20] MEDS: Atorvastatin Calcium 40 MG TAB PO SCH (21:22)
[2023-03-20] MEDS: Dextrose 50% Abboject 50 ML SYRINGE SLOW IVP PRN (21:52)
[2023-03-20] MEDS ORDERED: Dextrose 5% in Water 1,000 ML IV SCH (22:45)
[2023-03-20 23:20] LABS: Hematocrit 22.9 % (42.0-52.0); Hemoglobin 7.9 g/dL (14.0-18.0); Manual Diff?? YES; Mean Corpuscular HGB CONC 34.5 g/dL (32.0-36.0); Mean Corpuscular Hemoglobin 29.4 pg (27.0-31.0); Mean Corpuscular Volume 85.1 fl (78.0-98.0); Mean Platelet Volume 11.5 fL (7.4-10.4); Platelet Count 173 10x3/uL (130-400); RBC Distribution Width 19.2 % (11.5-14.5); Red Blood Cell (RBC) Count 2.69 mill/uL (4.70-6.10); White Blood Cell (WBC) Count 5.8 10x3/uL (4.8-10.8)
[2023-03-20 23:23] LABS: Delete Auto Diff?? YES
[2023-03-20 23:34] LABS: INR-International Normal Ratio 1.1; Prothrombin Time 14.8 sec (12.0-14.7)
[2023-03-20 23:37] LABS: Glucose 100 mg/dL (83-110)
[2023-03-20 23:56] LABS: Anisocytosis MODERATE=16-30 cells HPF (0-5); Band 10 % (5-11); Burr Cells MODERATE= 6-15 cells HPF (0-1); CellaVision Operator ID lab.sh2; Large Platelets 9.7 % (0-5); Lymphocytes 2 % (21-51); Macrocytosis MODERATE=16-30 cells HPF (0-5); Monocytes 6 % (0-10); Neutrophil 83 % (42-75); Ovalocytes MODERATE= 6-15 cells HPF (0-1); Platelet Adequacy Comment Platelets Normal; Poikilocytosis SLIGHT = 6-15 cells HPF (0-5); Polychromasia MODERATE = 3-4 cells HPF (0-2); Smudge Cells 7.8 %; Target Cells SLIGHT = 2-5 cells HPF (0-1); Total Cell Count 103; Vacuoles SLIGHT
[2023-03-21] MEDS: Ipratropium/Albuterol 3 ML NEB NEB SCH ×6 (02:03→21:55)
[2023-03-21] MEDS: Morphine 4 MG/ML VIAL SLOW IVP PRN ×2 (02:29→22:10)
[2023-03-21] MEDS: Metoclopramide HCl 10 MG (2 mL) VIAL IVP SCH ×3 (02:29→17:30)
[2023-03-21 04:51] LABS: Hematocrit 21.3 % (42.0-52.0); Hemoglobin 7.3 g/dL (14.0-18.0); Manual Diff?? YES; Mean Corpuscular HGB CONC 34.3 g/dL (32.0-36.0); Mean Corpuscular Hemoglobin 28.3 pg (27.0-31.0); Mean Corpuscular Volume 82.6 fl (78.0-98.0); Mean Platelet Volume 11.3 fL (7.4-10.4); Platelet Count 161 10x3/uL (130-400); RBC Distribution Width 19.3 % (11.5-14.5); Red Blood Cell (RBC) Count 2.58 mill/uL (4.70-6.10); White Blood Cell (WBC) Count 6.7 10x3/uL (4.8-10.8)
[2023-03-21 05:07] LABS: Delete Auto Diff?? YES
[2023-03-21 05:40] LABS: Anisocytosis MODERATE=16-30 cells HPF (0-5); Band 19 % (5-11); Burr Cells MODERATE= 6-15 cells HPF (0-1); CellaVision Operator ID lab.sh2; Eosinophils 2 % (0-10); Hypochromia SLIGHT = 6-15 cells HPF (0-5); Lymphocytes 2 % (21-51); Macrocytosis SLIGHT = 6-15 cells HPF (0-5); Monocytes 4 % (0-10); Neutrophil 73 % (42-75); Ovalocytes SLIGHT = 2-5 cells HPF (0-1); Platelet Adequacy Comment Platelets Normal; Poikilocytosis SLIGHT = 6-15 cells HPF (0-5); Polychromasia SLIGHT = 2-3 cells HPF (0-2); Schistocytes SLIGHT = 2-5 cells HPF (0-1); Smudge Cells 8.9 %; Target Cells SLIGHT = 2-5 cells HPF (0-1); Total Cell Count 101
[2023-03-21 08:01] LABS: Albumin 3.2 g/dL (3.4-4.8); Anion Gap 19 mmol/L (10-20); BUN (Urea Nitrogen) 36 mg/dL (8.4-25.7); BUN/Creatinine Ratio 10.59; Calc. Creatinine Clearance 17 mL/min (70-130); Calcium 8.3 mg/dL (7.8-10.44); Carbon Dioxide 24 mmol/L (23-31); Chloride 98 mmol/L (98-107); Estimated GFR 17; Glucose 85 mg/dL (83-110); Phosphorus 3.1 mg/dL (2.3-4.7); Potassium 4.5 mmol/L (3.5-5.1); Sodium 136 mmol/L (136-145)
[2023-03-21] MEDS: Cholecalciferol 10 MCG/ML (Vitamin D3) 50 ML BOT PO SCH (09:32)
[2023-03-21] MEDS: Insulin Glargine 30 UNITS/0.3 ML VIAL SC SCH (09:32)
[2023-03-21] MEDS: Lansoprazole 15 MG/5 ML (BATCHED)UDCUP PER TUBE SCH (09:49)
[2023-03-21] MEDS: Iron, Sodium Ferric Gluconate 250 MG in Sodium Chloride 0.9% 250 ML 250 ML IVPB SCH (16:54)
[2023-03-21] MEDS: Albumin 25% 25 GM (100 mL) BOT IVPB SCH ×2 (17:30→20:14)
[2023-03-21] MEDS: Atorvastatin Calcium 40 MG TAB PO SCH (20:14)
[2023-03-22] MEDS: Metoclopramide HCl 10 MG (2 mL) VIAL IVP SCH ×3 (01:54→17:13)
[2023-03-22] MEDS: Ipratropium/Albuterol 3 ML NEB NEB SCH ×6 (02:40→23:28)
[2023-03-22 04:58] LABS: INR-International Normal Ratio 1.1; PTT 44.3 sec (22.9-36.1); Prothrombin Time 14.9 sec (12.0-14.7)
[2023-03-22 05:08] LABS: Albumin 3.3 g/dL (3.4-4.8); Anion Gap 16 mmol/L (10-20); BUN (Urea Nitrogen) 30 mg/dL (8.4-25.7); BUN/Creatinine Ratio 11.24; Calc. Creatinine Clearance 21 mL/min (70-130); Calcium 8.5 mg/dL (7.8-10.44); Carbon Dioxide 22 mmol/L (23-31); Chloride 103 mmol/L (98-107); Estimated GFR 23; Glucose 166 mg/dL (83-110); Potassium 4.5 mmol/L (3.5-5.1); Sodium 136 mmol/L (136-145)
[2023-03-22] MEDS ORDERED: Iopamidol 370 76% 100 ML VIAL ONE (09:28)
[2023-03-22] MEDS: Cholecalciferol 10 MCG/ML (Vitamin D3) 50 ML BOT PO SCH (10:56)
[2023-03-22] MEDS: PHOS-NAK 1 PKT PACK PER TUBE SCH ×2 (10:56→22:52)
[2023-03-22] MEDS: Insulin Glargine 30 UNITS/0.3 ML VIAL SC SCH (10:56)
[2023-03-22] MEDS: Lansoprazole 15 MG/5 ML (BATCHED)UDCUP PER TUBE SCH (10:56)
[2023-03-22] MEDS: Iron, Sodium Ferric Gluconate 250 MG in Sodium Chloride 0.9% 250 ML 250 ML IVPB SCH (17:13)
[2023-03-22] MEDS: Atorvastatin Calcium 40 MG TAB PO SCH (22:52)
[2023-03-23] MEDS: Metoclopramide HCl 10 MG (2 mL) VIAL IVP SCH ×3 (02:15→16:56)
[2023-03-23] MEDS: Ipratropium/Albuterol 3 ML NEB NEB SCH ×6 (03:06→23:34)
[2023-03-23] MEDS: Lansoprazole 15 MG/5 ML (BATCHED)UDCUP PER TUBE SCH (09:11)
[2023-03-23] MEDS: Insulin Glargine 30 UNITS/0.3 ML VIAL SC SCH (09:11)
[2023-03-23] MEDS: Aspirin Chewable 81 MG TAB PER TUBE SCH (09:12)
[2023-03-23] MEDS: Cholecalciferol 10 MCG/ML (Vitamin D3) 50 ML BOT PO SCH (09:12)
[2023-03-23] MEDS ORDERED: Dexmedetomidine 400 MCG, Admixture Fee 1 EACH in Sodium Chloride 0.9% 96 ML IVPB SCH (13:30)
[2023-03-23] MEDS: Atorvastatin Calcium 40 MG TAB PO SCH (20:27)
[2023-03-24] MEDS: Metoclopramide HCl 10 MG (2 mL) VIAL IVP SCH ×3 (01:30→17:34)
[2023-03-24] MEDS: Ipratropium/Albuterol 3 ML NEB NEB SCH ×6 (02:33→21:51)
[2023-03-24 04:46] LABS: Hematocrit 16.9 % (42.0-52.0); Manual Diff?? YES; Mean Corpuscular HGB CONC 35.5 g/dL (32.0-36.0); Mean Corpuscular Hemoglobin 29.9 pg (27.0-31.0); Mean Corpuscular Volume 84.1 fl (78.0-98.0); Mean Platelet Volume 12.8 fL (7.4-10.4); Platelet Count 249 10x3/uL (130-400); RBC Distribution Width 19.6 % (11.5-14.5); Red Blood Cell (RBC) Count 2.01 mill/uL (4.70-6.10)
[2023-03-24 05:11] LABS: Anion Gap 14 mmol/L (10-20); BUN (Urea Nitrogen) 31 mg/dL (8.4-25.7); Calc. Creatinine Clearance 23 mL/min (70-130); Calcium 8.3 mg/dL (7.8-10.44); Carbon Dioxide 26 mmol/L (23-31); Chloride 98 mmol/L (98-107); Estimated GFR 26; Glucose 149 mg/dL (83-110); Potassium 3.7 mmol/L (3.5-5.1); Sodium 134 mmol/L (136-145)
[2023-03-24 05:20] LABS: Critical Call Chemistry ICU.RH3 @0520; Phosphorus Less than 1.0 mg/dL (2.3-4.7)
[2023-03-24 05:22] LABS: Delete Auto Diff?? YES
[2023-03-24] MEDS ORDERED: Sodium Phosphate 30 MMOL in Sodium Chloride 0.9% 250 ML 250 ML IVPB SCH (06:00)
[2023-03-24 06:11] LABS: Band 22 % (5-11); Eosinophils 2 % (0-10); Hypochromia SLIGHT = 6-15 cells (100X) (0-5/hpf); Lymphocytes 18 % (21-51); Metamyelocyte 1 % (0-0); Monocytes 6 % (0-10); Neutrophil 50 % (42-75); Nucleated RBC (Manual Ct) 1 % (0); Reactive Lymphocytes 1 % (0-10); Target Cells SLIGHT = 2-5 cells (100X) (0-1/hpf)
[2023-03-24 06:12] LABS: Platelet Adequacy Comment Platelets Normal; Schistocytes SLIGHT = 2-5 cells (100X) (0-1/hpf)
[2023-03-24] MEDS: Insulin Glargine 30 UNITS/0.3 ML VIAL SC SCH (08:15)
[2023-03-24] MEDS: Acetaminophen 325 MG TAB PO PRN (08:15)
[2023-03-24] MEDS: Aspirin Chewable 81 MG TAB PER TUBE SCH (08:16)
[2023-03-24] MEDS: Lansoprazole 15 MG/5 ML (BATCHED)UDCUP PER TUBE SCH (08:16)
[2023-03-24] MEDS: EPOETIN ALFA-EPBX 10,000 UNITS/ML VIAL SC SCH (12:27)
[2023-03-24] MEDS ORDERED: Cholecalciferol 1,000 UNITS (25 MCG) TAB PER TUBE SCH (13:00)
[2023-03-24] MEDS: Cholecalciferol 10 MCG/ML (Vitamin D3) 50 ML BOT PO SCH (13:03)
[2023-03-24] MEDS ORDERED: Epoetin (ESRD) 10,000 UNITS/ML VIAL SC SCH (16:15)
[2023-03-24 18:27] LABS: Hematocrit 22.1 % (42.0-52.0); Hemoglobin 7.7 g/dL (14.0-18.0); Mean Corpuscular HGB CONC 34.8 g/dL (32.0-36.0); Mean Corpuscular Hemoglobin 29.6 pg (27.0-31.0); Mean Platelet Volume 12.8 fL (7.4-10.4); Platelet Count 277 10x3/uL (130-400); RBC Distribution Width 22.5 % (11.5-14.5); White Blood Cell (WBC) Count 9.3 10x3/uL (4.8-10.8)
[2023-03-24] MEDS: Atorvastatin Calcium 40 MG TAB PO SCH (20:34)
[2023-03-25] MEDS: Metoclopramide HCl 10 MG (2 mL) VIAL IVP SCH ×3 (01:36→17:59)
[2023-03-25] MEDS: Ipratropium/Albuterol 3 ML NEB NEB SCH ×6 (02:16→21:14)
[2023-03-25] MEDS: Scopolamine 1 mg/72 hour Patch TD SCH (09:54)
[2023-03-25] MEDS: Cholecalciferol 1,000 UNITS (25 MCG) TAB PER TUBE SCH (09:54)
[2023-03-25] MEDS: Aspirin Chewable 81 MG TAB PER TUBE SCH (09:54)
[2023-03-25] MEDS: Lansoprazole 15 MG/5 ML (BATCHED)UDCUP PER TUBE SCH (09:55)
[2023-03-25] MEDS: Insulin Glargine 30 UNITS/0.3 ML VIAL SC SCH (09:55)
[2023-03-25] MEDS: Atorvastatin Calcium 40 MG TAB PO SCH (20:39)
[2023-03-26] MEDS: Metoclopramide HCl 10 MG (2 mL) VIAL IVP SCH ×3 (01:15→16:17)
[2023-03-26] MEDS: Ipratropium/Albuterol 3 ML NEB NEB SCH ×6 (01:58→22:14)
[2023-03-26 04:49] LABS: Hematocrit 22.5 % (42.0-52.0); Manual Diff?? YES; Mean Corpuscular HGB CONC 35.6 g/dL (32.0-36.0); Mean Corpuscular Hemoglobin 30.3 pg (27.0-31.0); Mean Corpuscular Volume 85.2 fl (78.0-98.0); Mean Platelet Volume 12.6 fL (7.4-10.4); Platelet Count 321 10x3/uL (130-400); Red Blood Cell (RBC) Count 2.64 mill/uL (4.70-6.10); White Blood Cell (WBC) Count 11.1 10x3/uL (4.8-10.8)
[2023-03-26 04:56] LABS: Delete Auto Diff?? YES
[2023-03-26 05:16] LABS: Anion Gap 11 mmol/L (10-20); BUN (Urea Nitrogen) 34 mg/dL (8.4-25.7); Calc. Creatinine Clearance 24 mL/min (70-130); Calcium 8.1 mg/dL (7.8-10.44); Carbon Dioxide 28 mmol/L (23-31); Chloride 98 mmol/L (98-107); Estimated GFR 27; Glucose 145 mg/dL (83-110); Phosphorus 1.6 mg/dL (2.3-4.7); Potassium 4.3 mmol/L (3.5-5.1); Sodium 133 mmol/L (136-145)
[2023-03-26 06:40] LABS: Anisocytosis SLIGHT = 6-15 cells (100X) (0-5/hpf); Band 8 % (5-11); Eosinophils 1 % (0-10); Lymphocytes 11 % (21-51); Metamyelocyte 1 % (0-0); Monocytes 8 % (0-10); Myelocyte 2 % (0-0); Neutrophil 68 % (42-75); Reactive Lymphocytes 1 % (0-10); Schistocytes SLIGHT = 2-5 cells (100X) (0-1/hpf); Target Cells SLIGHT = 2-5 cells (100X) (0-1/hpf)
[2023-03-26 06:41] LABS: Burr Cells SLIGHT = 2-5 cells (100X) (0-1/hpf); Platelet Adequacy Comment Appears Adequate
[2023-03-26] MEDS ORDERED: Sodium Phosphate 30 MMOL in Sodium Chloride 0.9% 250 ML 250 ML IVPB SCH (07:30)
[2023-03-26] MEDS: Lansoprazole 15 MG/5 ML (BATCHED)UDCUP PER TUBE SCH (08:12)
[2023-03-26] MEDS: Cholecalciferol 1,000 UNITS (25 MCG) TAB PER TUBE SCH (08:12)
[2023-03-26] MEDS: Aspirin Chewable 81 MG TAB PER TUBE SCH (08:13)
[2023-03-26] MEDS: Insulin Glargine 30 UNITS/0.3 ML VIAL SC SCH (08:14)
[2023-03-26] MEDS: Atorvastatin Calcium 40 MG TAB PO SCH (21:50)
[2023-03-27] MEDS: Metoclopramide HCl 10 MG (2 mL) VIAL IVP SCH ×3 (01:42→16:47)
[2023-03-27] MEDS: Ipratropium/Albuterol 3 ML NEB NEB SCH ×6 (02:19→22:32)
[2023-03-27 03:50] LABS: Hematocrit 22.7 % (42.0-52.0); Manual Diff?? YES; Mean Corpuscular HGB CONC 35.2 g/dL (32.0-36.0); Mean Corpuscular Hemoglobin 30.1 pg (27.0-31.0); Mean Corpuscular Volume 85.3 fl (78.0-98.0); Mean Platelet Volume 12.3 fL (7.4-10.4); Platelet Count 372 10x3/uL (130-400); RBC Distribution Width 24.2 % (11.5-14.5); Red Blood Cell (RBC) Count 2.66 mill/uL (4.70-6.10); White Blood Cell (WBC) Count 14.3 10x3/uL (4.8-10.8)
[2023-03-27 04:12] LABS: Anion Gap 16 mmol/L (10-20); BUN (Urea Nitrogen) 56 mg/dL (8.4-25.7); Calc. Creatinine Clearance 18 mL/min (70-130); Calcium 8.3 mg/dL (7.8-10.44); Carbon Dioxide 25 mmol/L (23-31); Chloride 98 mmol/L (98-107); Estimated GFR 19; Glucose 152 mg/dL (83-110); Potassium 4.7 mmol/L (3.5-5.1); Sodium 134 mmol/L (136-145)
[2023-03-27 04:19] LABS: Delete Auto Diff?? YES
[2023-03-27 04:56] LABS: Band 16 % (5-11); Eosinophils 2 % (0-10); Lymphocytes 11 % (21-51); Metamyelocyte 2 % (0-0); Monocytes 20 % (0-10); Myelocyte 5 % (0-0); Neutrophil 43 % (42-75); Nucleated RBC (Manual Ct) 4 % (0)
[2023-03-27 04:57] LABS: Anisocytosis SLIGHT = 6-15 cells (100X) (0-5/hpf); Macrocytosis SLIGHT = 6-15 cells (100X) (0-5/hpf)
[2023-03-27 04:58] LABS: Crenated RBC SLIGHT = 1-5 cells (100X) (None Seen); Poikilocytosis SLIGHT = 6-15 cells (100X) (0-5/hpf); Schistocytes SLIGHT = 2-5 cells (100X) (0-1/hpf)
[2023-03-27] MEDS: Cholecalciferol 1,000 UNITS (25 MCG) TAB PER TUBE SCH (11:55)
[2023-03-27] MEDS: Lansoprazole 15 MG/5 ML (BATCHED)UDCUP PER TUBE SCH (11:56)
[2023-03-27] MEDS: Insulin Glargine 30 UNITS/0.3 ML VIAL SC SCH (11:56)
[2023-03-27] MEDS: Aspirin Chewable 81 MG TAB PER TUBE SCH (11:57)
[2023-03-27] MEDS: Atorvastatin Calcium 40 MG TAB PO SCH (22:22)
[2023-03-28] MEDS: Metoclopramide HCl 10 MG (2 mL) VIAL IVP SCH ×3 (00:38→19:00)
[2023-03-28] MEDS: Ipratropium/Albuterol 3 ML NEB NEB SCH ×6 (03:06→22:21)
[2023-03-28] MEDS: Cholecalciferol 1,000 UNITS (25 MCG) TAB PER TUBE SCH (08:17)
[2023-03-28] MEDS: Lansoprazole 15 MG/5 ML (BATCHED)UDCUP PER TUBE SCH (08:18)
[2023-03-28] MEDS: Aspirin Chewable 81 MG TAB PER TUBE SCH (08:18)
[2023-03-28] MEDS: Scopolamine 1 mg/72 hour Patch TD SCH (08:19)
[2023-03-28] MEDS: Insulin Glargine 30 UNITS/0.3 ML VIAL SC SCH (08:21)
[2023-03-28 13:08] VITALS: BP 104/68
[2023-03-28] MEDS: Atorvastatin Calcium 40 MG TAB PO SCH (20:13)
[2023-03-29] MEDS: Metoclopramide HCl 10 MG (2 mL) VIAL IVP SCH ×3 (00:57→18:25)
[2023-03-29] MEDS: Ipratropium/Albuterol 3 ML NEB NEB SCH ×6 (02:44→22:56)
[2023-03-29 04:01] LABS: Hematocrit 22.4 % (42.0-52.0); Hemoglobin 7.9 g/dL (14.0-18.0); Manual Diff?? YES; Mean Corpuscular HGB CONC 35.3 g/dL (32.0-36.0); Mean Corpuscular Volume 82.4 fl (78.0-98.0); Mean Platelet Volume 11.8 fL (7.4-10.4); Platelet Count 385 10x3/uL (130-400); RBC Distribution Width 24.1 % (11.5-14.5); Red Blood Cell (RBC) Count 2.72 mill/uL (4.70-6.10); White Blood Cell (WBC) Count 22.4 10x3/uL (4.8-10.8)
[2023-03-29 04:15] LABS: Delete Auto Diff?? YES
[2023-03-29 04:23] LABS: Anion Gap 15 mmol/L (10-20); BUN (Urea Nitrogen) 64 mg/dL (8.4-25.7); Calc. Creatinine Clearance 16 mL/min (70-130); Calcium 8.4 mg/dL (7.8-10.44); Carbon Dioxide 28 mmol/L (23-31); Chloride 97 mmol/L (98-107); Estimated GFR 18; Glucose 104 mg/dL (83-110); Potassium 4.5 mmol/L (3.5-5.1); Sodium 135 mmol/L (136-145)
[2023-03-29 05:47] LABS: Band 20 % (5-11); Eosinophils 1 % (0-10); Lymphocytes 9 % (21-51); Monocytes 11 % (0-10); Myelocyte 1 % (0-0); Neutrophil 58 % (42-75)
[2023-03-29 05:48] LABS: Anisocytosis SLIGHT = 6-15 cells (100X) (0-5/hpf); Crenated RBC SLIGHT = 1-5 cells (100X) (None Seen); Target Cells SLIGHT = 2-5 cells (100X) (0-1/hpf)
[2023-03-29] MEDS: Insulin Glargine 30 UNITS/0.3 ML VIAL SC SCH (10:05)
[2023-03-29] MEDS: Cholecalciferol 1,000 UNITS (25 MCG) TAB PER TUBE SCH (10:05)
[2023-03-29] MEDS: Aspirin Chewable 81 MG TAB PER TUBE SCH (10:05)
[2023-03-29] MEDS: Lansoprazole 15 MG/5 ML (BATCHED)UDCUP PER TUBE SCH (10:06)
[2023-03-29 13:42] VITALS: BMI 22.7
[2023-03-29] MEDS: Amoxicillin/Potassium Clav 875 MG TAB PER TUBE SCH (20:44)
[2023-03-29] MEDS: Atorvastatin Calcium 40 MG TAB PO SCH (20:44)
[2023-03-30] MEDS: Metoclopramide HCl 10 MG (2 mL) VIAL IVP SCH ×3 (02:05→16:14)
[2023-03-30] MEDS: Ipratropium/Albuterol 3 ML NEB NEB SCH ×6 (02:39→22:59)
[2023-03-30] MEDS ORDERED: Heparin 10,000 UNITS/ 10 ML VIAL ONE (08:44)
[2023-03-30] MEDS: Lansoprazole 15 MG/5 ML (BATCHED)UDCUP PER TUBE SCH (10:03)
[2023-03-30] MEDS: Cholecalciferol 1,000 UNITS (25 MCG) TAB PER TUBE SCH (10:03)
[2023-03-30] MEDS: Insulin Glargine 30 UNITS/0.3 ML VIAL SC SCH (10:03)
[2023-03-30] MEDS: Aspirin Chewable 81 MG TAB PER TUBE SCH (10:03)
[2023-03-30 12:53] LABS: Hematocrit 24.6 % (42.0-52.0); Hemoglobin 8.7 g/dL (14.0-18.0); Manual Diff?? YES; Mean Corpuscular HGB CONC 35.4 g/dL (32.0-36.0); Mean Corpuscular Hemoglobin 29.4 pg (27.0-31.0); Mean Corpuscular Volume 83.1 fl (78.0-98.0); Mean Platelet Volume 11.9 fL (7.4-10.4); Platelet Count 447 10x3/uL (130-400); RBC Distribution Width 25.2 % (11.5-14.5); Red Blood Cell (RBC) Count 2.96 mill/uL (4.70-6.10); White Blood Cell (WBC) Count 22.5 10x3/uL (4.8-10.8)
[2023-03-30 12:56] LABS: Delete Auto Diff?? YES
[2023-03-30 13:13] LABS: Anion Gap 18 mmol/L (10-20); BUN (Urea Nitrogen) 82 mg/dL (8.4-25.7); Calc. Creatinine Clearance 12 mL/min (70-130); Calcium 8.5 mg/dL (7.8-10.44); Carbon Dioxide 23 mmol/L (23-31); Chloride 98 mmol/L (98-107); Estimated GFR 12; Glucose 55 mg/dL (83-110); Potassium 5.3 mmol/L (3.5-5.1); Sodium 134 mmol/L (136-145)
[2023-03-30 13:52] LABS: Band 2 % (5-11); Eosinophils 1 % (0-10); Lymphocytes 4 % (21-51); Monocytes 2 % (0-10); Myelocyte 6 % (0-0); Neutrophil 85 % (42-75)
[2023-03-30 13:53] LABS: Burr Cells SLIGHT = 2-5 cells (100X) (0-1/hpf); Polychromasia SLIGHT = 2-3 cells (100X) (0-2/hpf)
[2023-03-30 13:55] LABS: Platelet Adequacy Comment Platelets Increased; Schistocytes SLIGHT = 2-5 cells (100X) (0-1/hpf); Target Cells SLIGHT = 2-5 cells (100X) (0-1/hpf)
[2023-03-30] MEDS: Amoxicillin/Potassium Clav 875 MG TAB PER TUBE SCH (16:15)
[2023-03-30] MEDS: Dextrose 50% Abboject 50 ML SYRINGE SLOW IVP PRN (18:48)
[2023-03-30] MEDS ORDERED: Dextrose 10% in Water 1,000 ML IV SCH (19:30)
[2023-03-30] MEDS ORDERED: Albumin 25% 100 ML ONE (20:25)
[2023-03-30] MEDS ORDERED: Albumin 25% 25 GM (100 mL) BOT IVPB SCH (20:45)
[2023-03-30] MEDS ORDERED: Amoxicillin/Potassium Clav 500 MG TAB PER TUBE SCH (21:00)
[2023-03-30] MEDS: Atorvastatin Calcium 40 MG TAB PO SCH (23:41)
[2023-03-31] MEDS: Metoclopramide HCl 10 MG (2 mL) VIAL IVP SCH ×3 (02:32→16:46)
[2023-03-31] MEDS ORDERED: CEFAZOLIN 2 GM in Sodium Chloride 0.9% 100 ML IVPB SCH (05:00)
[2023-03-31] MEDS: Ipratropium/Albuterol 3 ML NEB NEB SCH ×4 (05:11→14:55)
[2023-03-31] MEDS: Scopolamine 1 mg/72 hour Patch TD SCH (08:39)
[2023-03-31] MEDS: Cholecalciferol 1,000 UNITS (25 MCG) TAB PER TUBE SCH (09:33)
[2023-03-31] MEDS: Aspirin Chewable 81 MG TAB PER TUBE SCH (09:33)
[2023-03-31] MEDS: Lansoprazole 15 MG/5 ML (BATCHED)UDCUP PER TUBE SCH (09:33)
[2023-03-31] MEDS ORDERED: EPINEPHrine 1 MG/ML VIAL ONE (09:37)
[2023-03-31] MEDS ORDERED: Bupivacaine 0.25% HCL 30 ML VIAL ONE (09:37)
[2023-03-31] MEDS ORDERED: Lidocaine 2% PF 5 ML VIAL ONE (09:37)
[2023-03-31] MEDS ORDERED: Heparin 10,000 UNITS/ 10 ML VIAL ONE (09:37)
[2023-03-31] MEDS ORDERED: fentaNYL 50 mcg/mL 1 mL Vial ONE (09:42)
[2023-03-31] MEDS ORDERED: PROPOFOL 40 ML ONE (09:42)
[2023-03-31] MEDS ORDERED: CEFAZOLIN 2 GM VIAL ONE (10:05)
[2023-03-31] MEDS ORDERED: Sodium Chloride 0.9% 100 ML ONE (10:06)
[2023-03-31] MEDS: EPOETIN ALFA-EPBX 10,000 UNITS/ML VIAL SC SCH (15:55)
[2023-03-31 18:21] VITALS: TEMP 98
== END 2023-03-31 17:15 | DRG 4 ==
LOC: ERS 22:36 → T4-A 02-21 05:25 → OBSVTOIN 02-21 08:49 → CCU 03-01 10:32 → IMCU/EMU 03-28 01:58
PROVIDERS: ADMIT Internal Medicine; ATTEND Internal Medicine
PROC: 5A1D70Z Performance of Urinary Filtration, Intermittent, Less than 6 Hours Per Day (ICD-10-PCS; 2023-02-23)
PROC: 30233J1 Transfusion of Nonautologous Serum Albumin into Peripheral Vein, Percutaneous Approach (ICD-10-PCS; 2023-02-28)
PROC: 0B9B8ZZ Drainage of Left Lower Lobe Bronchus, Via Natural or Artificial Opening Endoscopic (ICD-10-PCS; 2023-03-01)
PROC: 0B948ZZ Drainage of Right Upper Lobe Bronchus, Via Natural or Artificial Opening Endoscopic (ICD-10-PCS; 2023-03-01)
PROC: 0B988ZZ Drainage of Left Upper Lobe Bronchus, Via Natural or Artificial Opening Endoscopic (ICD-10-PCS; 2023-03-01)
PROC: 0B958ZZ Drainage of Right Middle Lobe Bronchus, Via Natural or Artificial Opening Endoscopic (ICD-10-PCS; 2023-03-01)
PROC: 0B968ZZ Drainage of Right Lower Lobe Bronchus, Via Natural or Artificial Opening Endoscopic (ICD-10-PCS; 2023-03-01)
PROC: 5A1955Z Respiratory Ventilation, Greater than 96 Consecutive Hours (ICD-10-PCS; 2023-03-01)
PROC: 0BH17EZ Insertion of Endotracheal Airway into Trachea, Via Natural or Artificial Opening (ICD-10-PCS; 2023-03-01)
PROC: 3E033XZ Introduction of Vasopressor into Peripheral Vein, Percutaneous Approach (ICD-10-PCS; 2023-03-01)
PROC: 5A1D70Z Performance of Urinary Filtration, Intermittent, Less than 6 Hours Per Day (ICD-10-PCS; 2023-03-01)
PROC: 06HY33Z Insertion of Infusion Device into Lower Vein, Percutaneous Approach (ICD-10-PCS; 2023-03-05)
PROC: 5A1D70Z Performance of Urinary Filtration, Intermittent, Less than 6 Hours Per Day (ICD-10-PCS; 2023-03-05)
PROC: 6A550Z2 Pheresis of Platelets, Single (ICD-10-PCS; 2023-03-07)
PROC: 30233N1 Transfusion of Nonautologous Red Blood Cells into Peripheral Vein, Percutaneous Approach (ICD-10-PCS; 2023-03-09)
PROC: 4A133R1 Monitoring of Arterial Saturation, Peripheral, Percutaneous Approach (ICD-10-PCS; 2023-03-10)
PROC: 009U3ZX Drainage of Spinal Canal, Percutaneous Approach, Diagnostic (ICD-10-PCS; 2023-03-14)
PROC: 0B113F4 Bypass Trachea to Cutaneous with Tracheostomy Device, Percutaneous Approach (ICD-10-PCS; 2023-03-20)
PROC: 0DH63UZ Insertion of Feeding Device into Stomach, Percutaneous Approach (ICD-10-PCS; 2023-03-20)
PROC: 009U3ZX Drainage of Spinal Canal, Percutaneous Approach, Diagnostic (ICD-10-PCS; 2023-03-21)
PROC: 06H03DZ Insertion of Intraluminal Device into Inferior Vena Cava, Percutaneous Approach (ICD-10-PCS; principal; 2023-03-22)
PROC: 5A1D70Z Performance of Urinary Filtration, Intermittent, Less than 6 Hours Per Day (ICD-10-PCS; 2023-03-27)
PROC: 0JH63XZ Insertion of Tunneled Vascular Access Device into Chest Subcutaneous Tissue and Fascia, Percutaneous Approach (ICD-10-PCS; 2023-03-31)
PROC: 02HV33Z Insertion of Infusion Device into Superior Vena Cava, Percutaneous Approach (ICD-10-PCS; 2023-03-31)
PROC: B548ZZA Ultrasonography of Superior Vena Cava, Guidance (ICD-10-PCS; 2023-03-31)
PROC: B5181ZA Fluoroscopy of Superior Vena Cava using Low Osmolar Contrast, Guidance (ICD-10-PCS; 2023-03-31)
DX: F03.C18 Unspecified dementia, severe, with other behavioral disturbance (principal); G92.9 Unspecified toxic encephalopathy; A41.9 Sepsis, unspecified organism; R65.21 Severe sepsis with septic shock; J96.01 Acute respiratory failure with hypoxia; J18.9 Pneumonia, unspecified organism; N17.0 Acute kidney failure with tubular necrosis; J13 Pneumonia due to Streptococcus pneumoniae; N18.6 End stage renal disease; E87.0 Hyperosmolality and hypernatremia; R64 Cachexia; G91.2 (Idiopathic) normal pressure hydrocephalus; G72.81 Critical illness myopathy; I82.413 Acute embolism and thrombosis of femoral vein, bilateral; I10 Essential (primary) hypertension; F17.210 Nicotine dependence, cigarettes, uncomplicated; N40.1 Benign prostatic hyperplasia with lower urinary tract symptoms; R33.8 Other retention of urine; S01.81XA Laceration without foreign body of other part of head, initial encounter; D64.9 Anemia, unspecified; E87.6 Hypokalemia; R62.51 Failure to thrive (child); E83.51 Hypocalcemia; E88.09 Other disorders of plasma-protein metabolism, not elsewhere classified; W19.XXXA Unspecified fall, initial encounter; Y92.9 Unspecified place or not applicable; Z98.890 Other specified postprocedural states; Z78.1 Physical restraint status; Z79.82 Long term (current) use of aspirin; Z79.899 Other long term (current) drug therapy
CPT/HCPCS: 36415; 36416; 36430; 36600; 37191; 70450; 70553; 71045; 72125; 76770; 80048; 80053; 80069; 80202; 81001; 82306; 82533; 82728; 82805; 82945; 83540; 83550; 83605; 83735; 84100; 84157; 84443; 84484; 85025; 85027; 85049; 85300; 85362; 85379; 85384; 85610; 85730; 86612; 86635; 86698; 86704; 86850; 86900; 86901; 86921; 87040; 87070; 87077; 87186; 87205; 89051; 90935; 93005; 93010; 93970; 94002; 94003; 94640; 96372; C1752; C1769; C1880; C1894; C9113; G0257; G0378; J0171; J0360; J0690; J1630; J1644; J1815; J1940; J2001; J2060; J2250; J2270; J2272; J2543; J2597; J2704; J2765; J2916; J2920; J3010; J3370; J3480; J3490; J7030; J7042; J7050; J7070; J7120; J7620; J7999; P9016; P9035; P9047; Q5105; Q5106; Q9967; S0020